=== PATIENT | female | born 1960 | race Caucasian/White ===

== ENCOUNTER 2018-02-24 16:57 | Emergency (ER) | payer OTHER, MEDICAID, SELFPAY ==
[2018-02-24 17:20] VITALS: BP 146/109; PULSE 107; RESP 16; TEMP 36.3; O2SAT 99; BMI 24.5
--- NOTE | 2018-02-24 18:23 | DI.US.S_ITS ---
PROCEDURE: US ABDOMEN COMPLETE INDICATIONS: RIGHT UPPER QUADRANT PAIN TECHNIQUE: Real-time scanning was performed of the abdominal and retroperitoneal organs, with image documentation. COMPARISON: [facility], CT, CT ABDOMEN PELVIS W CON, 02/24/2018, 19:59. [facility], US, ABDOMEN COMPLETE, 12/13/2010, 10:39. FINDINGS: Liver: Liver is normal in size and homogeneous in echotexture. Gallbladder: No gallstones, gallbladder wall thickening, or pericholecystic fluid. Biliary ducts: Intrahepatic bile ducts are non-dilated. Extrahepatic bile duct caliber measures up to 4 mm. Normal is 6-7 mm or less in diameter, or 10 mm or less post-cholecystectomy. Pancreas: Visualized portions of the pancreas are sonographically normal. Spleen: Spleen is normal in size. There are 2 solid mass lesions visualized within the spleen, measuring 3.0 x 3.0 x 3.1 cm and 3.5 x 2.7 x 3.2 cm. No definite internal vascularity on color Doppler interrogation. These are new compared to the prior ultrasound study. Kidneys: Right kidney measures 9.7 cm long; left kidney measures 10.1 cm long. No hydronephrosis. Aorta: Visualized aorta is normal in caliber at less than 3 cm. Iliacs: Proximal common iliac arteries are normal in caliber at less than 2.5 cm. IVC: Intrahepatic inferior vena cava is patent. Miscellaneous: No free abdominal fluid. IMPRESSION: 1. 2 new solid mass lesions demonstrated within the spleen. Recommend correlation with subsequent CT. 2. No evidence of cholelithiasis or cholecystitis. Dictated by: Kirk Nava M.D. on 02/24/2018 at 21:12 Approved by: Kirk Nava M.D. on 02/24/2018 at 21:14
[2018-02-24 18:57] LABS: Add Manual Diff / Slide Review NO; Basophils Absolute Auto 100 /uL (0-100); Basophils Percent Auto 0.9 % (0-2); Eosinophils Absolute Auto 100 /uL (0-450); Eosinophils Percent Auto 2.7 % (2-4); Hematocrit 46.2 % (36-46); Hemoglobin 15.4 g/dL (12.0-16.0); Lymphocytes Absolute Auto 2300 /uL (1100-4500); Lymphocytes Percent Auto 41.2 % (25-40); Mean Corpuscular HGB Conc 33.4 % (30-36); Mean Corpuscular Hemoglobin 30.2 PG (26-34); Mean Corpuscular Volume 90.5 fL (80-100); Monocytes Absolute Auto 500 /uL (0-900); Monocytes Percent Auto 8.6 % (3-14); Neutrophils Absolute Auto 2600 /uL (1500-7000); Neutrophils Percent Auto 46.6 % (50-75); Platelet Count 271 X10^3/uL (150-400); Red Cell Distribution Width 13.5 % (11.6-14.8); White Blood Cell Count 5.5 X10^3/uL (4.5-11.0)
--- NOTE | 2018-02-24 19:05 | ED.ABDPAIN ---
HPI - Abdominal Pain General Chief Complaint: Abdominal Pain Stated Complaint: RT UPPER ABD PAIN Time Seen by Provider: 02/24/18 18:20 Source: patient Mode of arrival: ambulatory Limitations: no limitations History of Present Illness HPI narrative: Patient is a 57-year-old female here for evaluation of epigastric and right upper quadrant pain. She states that she has had some sort of symptoms for the past month however she states that they do come and go. Do appear to be associated with eating. She states that over the past couple days she has had worsening pain. Some nausea. No vomiting. Has not tried anything for this prior to arrival. No prior abdominal surgeries. Related Data Allergies Allergy/AdvReac Type Severity Reaction Status Date / Time acetaminophen [From Vicodin] Allergy Verified 02/24/18 17:20 hydrocodone [From Vicodin] Allergy Verified 02/24/18 17:20 Review of Systems Constitutional Denies fever(s) and Denies headache(s) ENT Ears, Nose, Mouth, and Throat: Denies headache(s) Cardiovascular Denies chest pain and Denies dyspnea Respiratory Denies dyspnea Gastrointestinal Gastrointestinal: Reports abdominal pain, Denies change in bowel habits, Denies change in stool character, Reports nausea and Denies vomiting Genitourinary Denies dysuria and Denies flank pain Musculoskeletal Denies back pain, Denies myalgias and Denies arthralgias Integumentary/Breasts Denies rash Neurologic Denies headache(s) Hematologic/Lymphatic Comments: Not on anticoagulation PFSH Medical History Healthy adult (Acute) Surgical History No pertinent past surgical history (Acute) Social History Smoking Status: Smoker, status unknown Exam Initial Vital Signs Initial Vital Signs: Vital Signs Temperature 97.4 F L 02/24/18 17:20 Pulse Rate 107 H 02/24/18 17:20 Respiratory Rate 16 02/24/18 17:20 Blood Pressure 146/109 H 02/24/18 17:20 Pulse Oximetry 99 02/24/18 17:20 Const General: cooperative, comfortable, well developed, well groomed and No acute distress Orientation: alert, awake and oriented x3 HENMT Head: normal to inspection and normocephalic Resp Effort & Inspection: normal respiratory effort Auscultation: clear to auscultation bilaterally Cardio Rate: tachycardic Rhythm: regular rhythm Heart Sounds: no murmurs Pulses: radial pulses present GI Inspection: non-distended Palpation: soft, No firm, No guarding and tender (Right upper quadrant) Back/Spine/Pelvis Back: No CVA tenderness Skin General: no rashes or lesions noted Neuro General: alert, awake and oriented x3 Extrem General: normal to inspection and capillary refill normal Psych Appearance: grossly normal and well kempt Course Orders Ordered: ED Orders 02/24/18 18:21 EKG-12 Lead Stat 02/24/18 18:23 US abdomen complete Stat 02/24/18 18:40 Complete Blood Count AUTO DIFF Stat Comprehensive Metabolic Panel Stat Lipase Stat 02/24/18 20:01 CT abdomen pelvis w con Stat Discontinued Medications Sodium Chloride (Normal Saline 0.9%) 1,000 mls @ 1,000 mls/hr IV BOLUS ONE Stop: 02/24/18 21:00 Last Infusion: 02/24/18 21:19 Dose: 0 mls/hr Infusion: 02/24/18 20:28 Dose: 1,000 mls/hr Infusion: 02/24/18 20:21 Dose: 0 mls/hr Admin: 02/24/18 20:10 Dose: 1,000 mls/hr Ondansetron HCl (Zofran Odt Prepack) 1 bottle MISC SEEINSTR ONE Stop: 02/24/18 21:34 Last Admin: 02/24/18 21:37 Dose: 1 bottle Vital Signs - 8 hr 02/24/18 17:20 02/24/18 20:04 02/24/18 21:00 Temperature 97.4 F L Pulse Rate 107 H 77 74 Respiratory Rate 16 18 15 Blood Pressure 146/109 H Blood Pressure [Right Arm] 136/96 H 131/89 Pulse Oximetry 99 100 99 02/24/18 21:43 Temperature Pulse Rate 69 Respiratory Rate 18 Blood Pressure 120/83 Blood Pressure [Right Arm] Pulse Oximetry 98 MDM - Abdominal Pain Lab Data Attestation: I reviewed the patient's lab results. Result diagrams: 02/24/18 18:40 02/24/18 18:40 Lab Results 02/24/18 02/24/18 02/24/18 Range/Units 18:40 18:40 Unknown WBC 5.5 (4.5-11.0) X10^3/uL RBC 5.10 (4.0-5.2) X10^6/uL Hgb 15.4 (12.0-16.0) g/dL Hct 46.2 H (36-46) % MCV 90.5 (80-100) fL MCH 30.2 (26-34) PG MCHC 33.4 (30-36) % RDW 13.5 (11.6-14.8) % Plt Count 271 (150-400) X10^3/uL Neut % (Auto) 46.6 L (50-75) % Lymph % (Auto) 41.2 H (25-40) % [place] % (Auto) 8.6 (3-14) % Eos % (Auto) 2.7 (2-4) % Baso % (Auto) 0.9 (0-2) % Neut # (Auto) 2600 (0232-0967) /uL Lymph # (Auto) 2300 (8234-1856) /uL [place] # (Auto) 500 (0-900) /uL Eos # (Auto) 100 (0-450) /uL Baso # (Auto) 100 (0-100) /uL Sodium 143 (137-145) mmol/L Potassium 4.2 (3.4-5.1) mmol/L Chloride 103 (98-107) mmol/L Carbon Dioxide 27 (22-32) mmol/L BUN 11 (7-17) mg/dL Creatinine 0.70 (0.52-1.04) mg/dL Estimated GFR > 60.0 (>60) mL/min BUN/Creatinine Ratio 15.7 (6-22) Glucose 89 (70-100) mg/dL Calcium 10.4 H (8.4-10.2) mg/dL Total Bilirubin 0.4 (0.2-1.3) mg/dL AST 29 (14-36) IU/L ALT 36 (9-52) IU/L Alkaline Phosphatase 67 (38-126) U/L Total Protein 8.3 H (6.3-8.2) g/dL Albumin 5.0 (3.5-5.0) g/dL Globulin 3.3 (1.7-4.1) g/dL Albumin/Globulin Ratio 1.5 (1.0-2.8) Lipase 2176 H (23-300) U/L Ethyl Alcohol < 10 mg/dL Point of care testing: Urine Dip Bedside Urine Glucose Negative Bedside Urine Bilirubin - Negative Bedside Urine Ketone - Negative Urine Specific [place] 1.010 Bedside Urine Occult Blood - Negative Bedside Urine pH 6.0 Bedside Urine Protein - Negative Bedside Urine Urobilinogen - Negative Bedside Urine Nitrite - Negative Bedside Urine Leukocytes - Negative Esterase Imaging Data US - abdomen: Radiologist's impression: [address] [address] Ultrasound Report Signed Patient: Lissy Cline MR#: [id number] : 1960 Acct:[id number] Age/Sex: 57 / F Date of Service: 02/24/18 Loc: ED Accession Number: [id number] Procedure: US abdomen complete Ordering Provider: Joey Mederos D.O. PROCEDURE: US ABDOMEN COMPLETE INDICATIONS: RIGHT UPPER QUADRANT PAIN TECHNIQUE: Real-time scanning was performed of the abdominal and retroperitoneal organs, with image documentation. COMPARISON: [facility], CT, CT ABDOMEN PELVIS W CON, 02/24/2018, 19:59. [facility], US, ABDOMEN COMPLETE, 12/13/2010, 10:39. FINDINGS: Liver: Liver is normal in size and homogeneous in echotexture. Gallbladder: No gallstones, gallbladder wall thickening, or pericholecystic fluid. Biliary ducts: Intrahepatic bile ducts are non-dilated. Extrahepatic bile duct caliber measures up to 4 mm. Normal is 6-7 mm or less in diameter, or 10 mm or less post-cholecystectomy. Pancreas: Visualized portions of the pancreas are sonographically normal. Spleen: Spleen is normal in size. There are 2 solid mass lesions visualized within the spleen, measuring 3.0 x 3.0 x 3.1 cm and 3.5 x 2.7 x 3.2 cm. No definite internal vascularity on color Doppler interrogation. These are new compared to the prior ultrasound study. Kidneys: Right kidney measures 9.7 cm long; left kidney measures 10.1 cm long. No hydronephrosis. Aorta: Visualized aorta is normal in caliber at less than 3 cm. Iliacs: Proximal common iliac arteries are normal in caliber at less than 2.5 cm. IVC: Intrahepatic inferior vena cava is patent. Miscellaneous: No free abdominal fluid. IMPRESSION: 1. 2 new solid mass lesions demonstrated within the spleen. Recommend correlation with subsequent CT. 2. No evidence of cholelithiasis or cholecystitis. Dictated by: Kirk Nava M.D. on 02/24/2018 at 21:12 Approved by: Kirk Nava M.D. on 02/24/[address] scan - abdomen: Radiologist's impression: PROCEDURE: CT ABDOMEN PELVIS W CON INDICATIONS: pancreatitis and mass on spleen by US TECHNIQUE: After the administration of oral and intravenous contrast, 5 mm thick sections acquired from the diaphragms to the symphysis. 5 mm thick coronal and sagittal reformats were performed. For radiation dose reduction, the following was used: automated exposure control, adjustment of mA and/or kV according to patient size. COMPARISON: [facility], US, ABDOMEN COMPLETE, 12/13/2010, 10:39. [facility], US, US ABDOMEN COMPLETE, 02/24/2018, 19:33. FINDINGS: Image quality: Excellent. ABDOMEN: Lung bases: Lung bases are clear. Heart size is normal. Solid organs: Evaluation of the liver demonstrates no focal hepatic lesions the gallbladder appears within normal limits without calcified gallstones. Biliary system is non-dilated. Pancreas enhances normally without fat stranding or fluid collections. No pancreatic duct dilatation. No adrenal nodules. The spleen is normal in overall size. There are 4 hypoattenuating lesions within the spleen including a lobulated mass anteriorly measuring up to 3.3 x 2.7 cm, a lobulated mass centrally measuring up to 2.6 x 2.5 cm, and 2 smaller lesions measuring up to 1.2 cm. These demonstrate indistinct margins. Peritoneum and bowel: The stomach demonstrates normal wall thickness. There is mild segmental wall thickening involving the 2nd portion of the duodenum. The remainder of the small bowel and colon demonstrate normal wall thickness and caliber. The appendix is normal in appearance. There is colonic diverticulosis without acute diverticulitis. No free fluid or air. Nodes and vessels: No retroperitoneal or mesenteric adenopathy. Aorta and inferior vena cava are normal in caliber. Miscellaneous: No ventral hernias. PELVIS: Genitourinary: Bladder wall thickness is normal. Miscellaneous: No inguinal hernias or adenopathy. Bones: No suspicious bony lesions. No vertebral body compression fractures. IMPRESSION: 1. No CT evidence of pancreatitis. 2. No calcified gallstones or biliary ductal dilatation. 3. Multiple hypoattenuating splenic mass lesions as described. The findings are nonspecific and the differential is broad including hemangiomas, lymphangiomas, and Littoral cell angiomas as well as malignancies such as metastatic disease or angiosarcoma. These are new compared to the prior ultrasound of 12/13/10. Consider further evaluation with PET/CT or histologic diagnosis. 4. Mild segmental wall thickening of the 2nd portion of the duodenum consistent with a nonspecific infectious or inflammatory duodenitis. Dictated by: Kirk Nava M.D. on 02/24/2018 at 21:01 Approved by: Kirk Nava M.D. on 02/24/2018 at 21:11 ECG Data Attestation: I personally reviewed and interpreted this ECG as follows: Prior ECG tracings: not available for review Interpretation: Sinus rhythm Ventricular rate is 69 Normal axis Normal QRS Normal QTC No ST T wave changes MDM Narrative Medical decision making narrative: Patient is a relatively benign abdominal exam. Does have an elevated lipase and her pain is consistent with this. She has no signs of cholecystitis or cholelithiasis on the ultrasound. Her LFTs are unremarkable. We did discuss the treatment of pancreatitis. She denies any pain medication. Was sent home with some nausea medication. We did discuss a bland liquid diet. We discussed return precautions. Ultrasound did show some concerns for masses in the spleen. This is why the CT scan was ordered. It does show masses. I did discuss these with the patient. I do not feel like there the cause of her presenting symptoms today. She does have a follow-up with her primary doctor at the beginning of next month. I informed her that she needed to discuss these with him. Patient is not toxic. I do not feel like she needs admitted to the hospital. Patient expressed understanding and agreement with plan. Discharge Plan Departure Patient Disposition: Home Clinical Impression: Pancreatitis, Abdominal pain, Lesion of spleen Discharge Date/Time: 02/24/18 21:44 Interventions: ED Discharge Assessment Last Done: 02/24/18 21:43 Instructions: Pancreatitis (Alternative Therapy), DI for Pancreatitis Activity Restrictions/Additional Instructions: Recommend that she keep your appointment already scheduled for the beginning of next month with your primary doctor. Recommend a bland diet. Return to the emergency department for any new or worsening symptoms. Make sure you talk with her primary doctor about the lesions that were seen on the spleen.
[2018-02-24 19:08] LABS: Alanine Aminotransferase 36 IU/L (9-52); Albumin Globulin Ratio 1.5 (1.0-2.8); Alkaline Phosphatase 67 U/L (38-126); Aspartate Aminotransferase 29 IU/L (14-36); BUN Creatinine Ratio 15.7 (6-22); Bilirubin Total 0.4 mg/dL (0.2-1.3); Blood Urea Nitrogen 11 mg/dL (7-17); Calcium 10.4 mg/dL (8.4-10.2); Carbon Dioxide 27 mmol/L (22-32); Chloride 103 mmol/L (98-107); Estimated Glomerular Filt Rate > 60.0 mL/min (>60); Globulin 3.3 g/dL (1.7-4.1); Glucose 89 mg/dL (70-100); HEMOLYSIS < 15 (0-50); Potassium 4.2 mmol/L (3.4-5.1); Sodium 143 mmol/L (137-145); Total Protein 8.3 g/dL (6.3-8.2)
[2018-02-24 19:19] LABS: Lipase 2176 U/L (23-300)
[2018-02-24 20:00] LABS: Ethanol (ETOH) < 10 mg/dL
--- NOTE | 2018-02-24 20:01 | DI.CT.S_ITS ---
PROCEDURE: CT ABDOMEN PELVIS W CON INDICATIONS: pancreatitis and mass on spleen by US TECHNIQUE: After the administration of oral and intravenous contrast, 5 mm thick sections acquired from the diaphragms to the symphysis. 5 mm thick coronal and sagittal reformats were performed. For radiation dose reduction, the following was used: automated exposure control, adjustment of mA and/or kV according to patient size. COMPARISON: [facility], US, ABDOMEN COMPLETE, 12/13/2010, 10:39. [facility], US, US ABDOMEN COMPLETE, 02/24/2018, 19:33. FINDINGS: Image quality: Excellent. ABDOMEN: Lung bases: Lung bases are clear. Heart size is normal. Solid organs: Evaluation of the liver demonstrates no focal hepatic lesions the gallbladder appears within normal limits without calcified gallstones. Biliary system is non-dilated. Pancreas enhances normally without fat stranding or fluid collections. No pancreatic duct dilatation. No adrenal nodules. The spleen is normal in overall size. There are 4 hypoattenuating lesions within the spleen including a lobulated mass anteriorly measuring up to 3.3 x 2.7 cm, a lobulated mass centrally measuring up to 2.6 x 2.5 cm, and 2 smaller lesions measuring up to 1.2 cm. These demonstrate indistinct margins. Peritoneum and bowel: The stomach demonstrates normal wall thickness. There is mild segmental wall thickening involving the 2nd portion of the duodenum. The remainder of the small bowel and colon demonstrate normal wall thickness and caliber. The appendix is normal in appearance. There is colonic diverticulosis without acute diverticulitis. No free fluid or air. Nodes and vessels: No retroperitoneal or mesenteric adenopathy. Aorta and inferior vena cava are normal in caliber. Miscellaneous: No ventral hernias. PELVIS: Genitourinary: Bladder wall thickness is normal. Miscellaneous: No inguinal hernias or adenopathy. Bones: No suspicious bony lesions. No vertebral body compression fractures. IMPRESSION: 1. No CT evidence of pancreatitis. 2. No calcified gallstones or biliary ductal dilatation. 3. Multiple hypoattenuating splenic mass lesions as described. The findings are nonspecific and the differential is broad including hemangiomas, lymphangiomas, and Littoral cell angiomas as well as malignancies such as metastatic disease or angiosarcoma. These are new compared to the prior ultrasound of 12/13/10. Consider further evaluation with PET/CT or histologic diagnosis. 4. Mild segmental wall thickening of the 2nd portion of the duodenum consistent with a nonspecific infectious or inflammatory duodenitis. Dictated by: Kirk Nava M.D. on 02/24/2018 at 21:01 Approved by: Kirk Nava M.D. on 02/24/2018 at 21:11
[2018-02-24 20:04] VITALS: BP 136/96; PULSE 77; RESP 18; O2SAT 100
[2018-02-24] MEDS: SODIUM CHLORIDE 0.9% 1,000 ML 1000 ML IV (20:10)
[2018-02-24 21:00] VITALS: BP 131/89; PULSE 74; RESP 15; O2SAT 99
[2018-02-24] MEDS: ONDANSETRON 4 MG ODT PREPACK 1 BOTTLE MISC (21:37)
[2018-02-24 21:43] VITALS: BP 120/83; PULSE 69; RESP 18; O2SAT 98
== END 2018-02-24 21:44 | disposition home or self-care (01) ==
PROVIDERS: Emergency Provider Emergency Medicine; Family Provider Family Medicine; PCP Family Medicine
DX: K85.90 Acute pancreatitis without necrosis or infection, unspecified (principal); D73.9 Disease of spleen, unspecified; R10.9 Unspecified abdominal pain
CPT/HCPCS: 36591; 74177; 76700; 80053; 80320; 81003; 83690; 85025; 93005; 93010; 96360; 99284; 99285; Q9967

== ENCOUNTER → 2018-04-01 07:58 | Outpatient (CLI) | payer OTHER, MEDICAID, SELFPAY ==
--- NOTE | 2018-04-01 | DI.US.S_ITS ---
PROCEDURE: US ABDOMEN LIMITED INDICATIONS: FOLLOW-UP GALLBLADDER TECHNIQUE: Real-time focused scanning was performed of the abdomen, with image documentation. COMPARISON: [facility], US, US ABDOMEN COMPLETE, 02/24/2018, 19:33. [facility], CT, CT ABDOMEN PELVIS W CON, 02/24/2018, 19:59. FINDINGS: Limited study targeted the right upper quadrant at clinician request. The gallbladder appears normal with normal gallbladder wall thickness of 1.7 mm. The common bile duct is normal in caliber at 4.6 mm. The pancreas visualized appears normal. IMPRESSION: Normal limited right upper quadrant ultrasound, source of reported continued right upper quadrant pain is not found. Dictated by: Isac Flood M.D. on 04/01/2018 at 8:47 Approved by: Isac Flood M.D. on 04/01/2018 at 8:48
== END ==
PROVIDERS: PCP Family Medicine; Visit Provider Family Medicine
DX: R10.11 Right upper quadrant pain (principal)
CPT/HCPCS: 76705

== ENCOUNTER → 2018-07-17 13:26 | Outpatient (CLI) | payer OTHER, MEDICAID, SELFPAY ==
--- NOTE | 2018-07-17 14:47 | DI.MRI.S_ITS ---
PROCEDURE: MR ABDOMEN WO/W CON INDICATIONS: Right upper quadrant pain TECHNIQUE: Coronal HASTE, axial 2D FLASH in- and [id number]; axial breath-hold T2 FSE. Dynamic axial VIBE during the administration of contrast; post-contrast coronal VIBE or 2D FLASH with fat saturation from the hepatic dome to the iliac crests. Optional diffusion weighted imaging and ADC may be performed. COMPARISON: [facility], US, US ABDOMEN LIMITED, 04/01/2018, 8:13. [facility], [place], [place] PET CT FUSION SKULL 2 THIGH, 04/08/2018, 16:01. [facility], CT, CT ABDOMEN PELVIS W CON, 02/24/2018, 19:59. FINDINGS: Image quality: Excellent. Lung bases: No basal pleural effusions. Heart size is normal. Solid organs: Liver is normal in size and enhancement. Gallbladder appears normal. Biliary system is non dilated. Pancreas is normal in morphology. Spleen is normal in size again demonstrates 3 separate splenic masses with abnormal enhancement. These masses were seen initially by CT scanning 02/24/18 and the larger mass at the upper spleen had measured 2.5 x 2.6 cm with a small mass at the posterior inferior spleen measuring 1.1 x 1.2 cm and a third mass at the anterior lower spleen measuring up to 2.7 x 3.3 cm. These masses overall appear to have enlarged to a mild degree with the larger upper mass now measuring 3. 2 x 2.9 cm and the lower mass anteriorly measuring up to 3.1 x 3.7 cm. The more posterior lower mass does not appear to have changed. A fourth mass at the superior posterior splenic border measures 1.2 cm, and on the prior CT scanning had not been this enlargement has occurred over a relatively short period of time from 02/24/18 of the current study. visible as a discrete entity except for a slight hypodensity measuring 4 mm. No adrenal nodules. Both kidneys demonstrate normal size and enhancement, without hydronephrosis. Nodes and vessels: No retroperitoneal or mesenteric adenopathy by size criteria. Aorta and inferior vena cava are normal in size. Bowel and peritoneum: Unenhanced bowel loops are normal in caliber. No free fluid. Bones and soft tissues: No ventral hernias. Bone marrow is normal in overall signal. IMPRESSION: There are a total of 4 separate enhancing splenic masses which are worrisome by appearance having enlarged in size for 3 of the 4 masses. A targeted single organ ultrasound directed to the spleen is recommended for further characterization and to establish baseline imaging for followup if followup is desired to determine rate of price changer time. The current workup has included different modalities and the effect of that on accuracy of measurement of these structures is uncertain. A single modality for followup it is preferable, if possible. Dictated by: Isac Flood M.D. on 07/17/2018 at 17:25 Approved by: Isac Flood M.D. on 07/17/2018 at 17:35
== END ==
PROVIDERS: PCP Family Medicine; Visit Provider Family Medicine
DX: R10.11 Right upper quadrant pain (principal); R16.1 Splenomegaly, not elsewhere classified
CPT/HCPCS: 74183; A9579

== ENCOUNTER → 2018-08-14 07:35 | Outpatient (CLI) | payer OTHER, MEDICAID, SELFPAY ==
--- NOTE | 2018-08-14 07:37 | DI.NM.S_ITS ---
PROCEDURE: NM HIDA WITH CCK PHARMACEUTICAL: 5.5 mCi Tc-99m mebrofenin IV; 1.1 mcg CCK IV. INDICATIONS: abdominal pain TECHNIQUE: Following intravenous administration of Tc-99m mebrofenin, sequential anterior abdominal images were obtained. To evaluate the contractile response of the gallbladder in response to Cholecystokinin (CCK), sincalide (0.02 ?g/kg) was administered by slow intravenous infusion approximately 60 minutes after the administration of the radiopharmaceutical. Sequential imaging was continued for 30 minutes after the start of CCK infusion. Gallbladder ejection fraction was calculated. COMPARISON: [facility], , MR ABDOMEN WO/W CON, 07/17/2018, 14:14. [facility], US, US ABDOMEN LIMITED, 04/01/2018, 8:13. FINDINGS: Biliary scan: There is normal tracer uptake and excretion by the liver. There is normal visualization of the intrahepatic ducts, common bile duct, and gallbladder. There is normal tracer transit into the duodenum. CCK stimulation: There is poor contractile response of the gallbladder to CCK infusion. The calculated gallbladder ejection fraction is 31%; normal values are above 35%. It has been shown that any patient abdominal pain after CCK administration is related to the rate of CCK injection, rather than to any underlying gallbladder disease (Clinical Nuclear Medicine 2012; 37: 63-70. Journal of Nuclear Medicine 2014; 55: 1-9). IMPRESSION: 1. Normal filling of gallbladder. No evidence for acute cholecystitis. 2. Poor contractile response of gallbladder to CCK stimulation. This finding may be secondary to gallbladder dyskinesia or chronic cholecystitis. Dictated by: Jelani Almonte M.D. on 08/14/2018 at 10:30 Approved by: Jelani Almonte M.D. on 08/14/2018 at 10:34
== END ==
PROVIDERS: PCP Family Medicine; Visit Provider Surgery
DX: R16.1 Splenomegaly, not elsewhere classified (principal); R10.9 Unspecified abdominal pain
CPT/HCPCS: 78227; A9537; J2805

== ENCOUNTER 2018-08-20 13:22 | Emergency (ER) | payer OTHER, MEDICAID, SELFPAY ==
[2018-08-20 13:26] VITALS: BP 132/89; PULSE 70; RESP 15; TEMP 36.5; O2SAT 100; BMI 19.8
[2018-08-20] MEDS: ONDANSETRON 4 MG/2 ML INJ IV (14:15)
[2018-08-20] MEDS: SODIUM CHLORIDE 0.9% 1,000 ML 1000 ML IV (14:15)
[2018-08-20 14:19] LABS: Add Manual Diff / Slide Review NO; Basophils Absolute Auto 0 /uL (0-100); Basophils Percent Auto 0.7 % (0-2); Eosinophils Absolute Auto 100 /uL (0-450); Eosinophils Percent Auto 2.9 % (2-4); Hematocrit 41.1 % (36-46); Hemoglobin 13.6 g/dL (12.0-16.0); Lymphocytes Absolute Auto 1900 /uL (1100-4500); Lymphocytes Percent Auto 39.6 % (25-40); Mean Corpuscular HGB Conc 33.2 % (30-36); Mean Corpuscular Hemoglobin 30.7 PG (26-34); Mean Corpuscular Volume 92.5 fL (80-100); Monocytes Absolute Auto 400 /uL (0-900); Monocytes Percent Auto 7.6 % (3-14); Neutrophils Absolute Auto 2300 /uL (1500-7000); Neutrophils Percent Auto 49.2 % (50-75); Platelet Count 219 X10^3/uL (150-400); Red Blood Cell Count 4.45 X10^6/uL (4.0-5.2); Red Cell Distribution Width 13.2 % (11.6-14.8); White Blood Cell Count 4.7 X10^3/uL (4.5-11.0)
--- NOTE | 2018-08-20 14:21 | DI.US.S_ITS ---
PROCEDURE: US ABDOMEN LIMITED INDICATIONS: RIGHT UPPER QUADRANT PAIN TECHNIQUE: Real-time focused scanning was performed of the abdomen, with image documentation. COMPARISON: [facility], CT, CT ABDOMEN PELVIS W CON, 02/24/2018, 19:59. [place], [place], [place] PET CT FUSION SKULL 2 THIGH, 04/08/2018, 16:01. [facility], MR, MR ABDOMEN WO/W CON, 07/17/2018, 14:14. [place], [place], MD HIDA WITH CCK, 08/14/2018, 8:03. [facility], US, US ABDOMEN LIMITED, 04/01/2018, 8:13. FINDINGS: Visualized liver demonstrates normal size and echotexture. No gallstones. No gallbladder wall thickening, pericholecystic fluid or sonographic Mcgovern's sign. No intrahepatic biliary dilation. Common bile duct measures 2.9 mm. The visualized pancreas is normal. IMPRESSION: Normal limited right upper quadrant ultrasound exam. Dictated by: Jelani Almonte M.D. on 08/20/2018 at 15:23 Approved by: Jelani Almonte M.D. on 08/20/2018 at 15:29
--- NOTE | 2018-08-20 14:24 | ED.ABDPAIN ---
HPI - Abdominal Pain <NOBLE Sullivan - Last Filed: 08/20/18 17:32> General Chief Complaint: Abdominal Pain Stated Complaint: gallbladder attack Time Seen by Provider: 08/20/18 13:50 Source: patient Mode of arrival: ambulatory Limitations: no limitations History of Present Illness HPI narrative: The patient is a 57-year-old female marijuana smoker who presents with her for chief complaint of right upper quadrant pain. She states that this has been ongoing since February, when she was diagnosed with pancreatitis. She denies any fevers, but complains of nausea and malaise. She denies any vomiting. She states her pain is in the right upper quadrant, extending across her abdomen. She states that this is similar to her pancreatitis episode. She is also concerned about her gallbladder. She states that she has had extensive imaging start of this year, including a an abdominal CT, several ultrasounds an abdominal MRI in early July as well as a PET scan in March. She had a HIDA scan done at this facility on the of this month. But does not know the results. She has planned follow-up with her surgeon next week. She states that the pain in her right upper quadrant has been ongoing since February, but has been worse today. She has not taken anything at home for pain or nausea. She denies any dysuria urgency frequency. Related Data Home Medications Medication Instructions Recorded Confirmed famotidine 20 mg tablet 20 mg PO DAILY PRN 08/03/18 08/20/18 melatonin 10 mg tablet 10 mg PO BEDTIME PRN 08/03/18 08/20/18 multivitamin tablet 1 tab PO DAILY 08/03/18 08/20/18 diazepam 5 mg PO Q8H PRN 08/20/18 08/20/18 fluoxetine 20 mg PO BEDTIME 08/20/18 08/20/18 Previous Rx's Medication Instructions Recorded ondansetron 4 mg PO Q8H PRN #30 tab 08/20/18 tramadol 50 mg PO TID PRN #10 tab 08/20/18 Allergies Allergy/AdvReac Type Severity Reaction Status Date / Time acetaminophen [From Vicodin] Allergy Verified 08/20/18 13:26 hydrocodone [From Vicodin] Allergy Verified 08/20/18 13:26 Review of Systems <NOBLE Sullivan - Last Filed: 08/20/18 17:32> Review of Systems GENERAL: Denies chills, fatigue, malaise, fever, sweats. HEENT: Denies sinus pain, ear pain, sore throat, difficulty swallowing, dizziness. RESPIRATORY: Denies dyspnea, cough, wheezing, hemoptysis, sputum. CARDIOVASCULAR: Denies chest pain, palpitations, orthopnea, edema, GASTROINTESTINAL: See HPI : Denies dysuria, frequency, incontinence, hematuria, urinary retention. MUSCULOSKELETAL: denies weakness, joint pain, or bony pain SKIN: Denies rash, skin lesions, or other NEUROLOGIC: Denies weakness, headache, numbness, change in speech, confusion, seizures, incoordination. PSYCHIATRIC: No concerning psychosocial issues. 12 point review of systems is negative except for those stated above PFSH <NOBLE Sullivan - Last Filed: 08/20/18 17:32> Medical History (Updated 08/20/18 @ 17:14 by NOBLE Sullivan) Healthy adult (Acute) History of pancreatitis (Acute) Surgical History No pertinent past surgical history (Acute) Social History marital status: number of children: 3 household members: spouse Smoking Status: Smoker, status unknown alcohol intake: never substance use type: marijuana Social History marital status: number of children: 3 household members: spouse Smoking Status: Smoker, status unknown alcohol intake: never substance use type: marijuana Exam <NOBLE Sullivan - Last Filed: 08/20/18 17:32> Narrative Exam Narrative: GENERAL: Thin female no acute distress HEAD: Atraumatic. Normocephalic. No temporal or scalp tenderness. EYES: Pupils equal round and reactive. Extraocular motions intact. No scleral icterus. No injection or drainage. ENT: Nose without bleeding, purulent drainage or septal hematoma. Throat without erythema, tonsillar hypertrophy or exudate. Uvula midline. Airway patent. NECK: Trachea midline. No JVD or lymphadenopathy. Supple, nontender, no meningeal signs. CARDIOVASCULAR: Regular rate and rhythm RESPIRATORY: Clear to auscultation. Breath sounds equal bilaterally. No wheezes, rales, or rhonchi. No cough. No increased respiratory effort. No accessory muscle use. GASTROINTESTINAL: Abdomen soft, nondistended. No hepato-splenomegaly, or palpable masses. No guarding. Diffuse tenderness to right upper quadrant palpation. EXTREMITIES: No clubbing, cyanosis, or edema. No joint tenderness, effusion, or edema noted. BACK: Nontender without deformity or crepitance. No flank tenderness. NEURO: AOx3. SKIN: No rash or erythema. Initial Vital Signs Initial Vital Signs: Vital Signs Temperature 97.7 F 08/20/18 13:26 Pulse Rate 70 08/20/18 13:26 Respiratory Rate 15 08/20/18 13:26 Blood Pressure 132/89 08/20/18 13:26 Pulse Oximetry 100 08/20/18 13:26 <Adalgisa Arroyo MD - Last Filed: 08/20/18 19:58> Initial Vital Signs Initial Vital Signs: Vital Signs Temperature 97.7 F 08/20/18 13:26 Pulse Rate 70 08/20/18 13:26 Respiratory Rate 15 08/20/18 13:26 Blood Pressure 132/89 08/20/18 13:26 Pulse Oximetry 100 08/20/18 13:26 Course <NOBLE Sullivan - Last Filed: 08/20/18 17:32> Orders Ordered: ED Orders 08/20/18 14:05 Amylase Stat Complete Blood Count AUTO DIFF Stat Comprehensive Metabolic Panel Stat Lipase Stat Troponin & CK Cardiac Panel Stat 08/20/18 14:21 US abdomen limited Stat 08/20/18 14:30 Lactate (Lactic Acid) Stat Partial Thromboplastin Time Stat Prothrombin Time INR Stat 08/20/18 14:31 EKG-12 Lead Stat 08/20/18 16:30 Urine Microscopic Stat Discontinued Medications Sodium Chloride (Normal Saline 0.9%) 1,000 mls @ 1,000 mls/hr IV BOLUS ONE Stop: 08/20/18 14:57 Last Infusion: 08/20/18 15:21 Dose: 0 mls/hr Admin: 08/20/18 14:15 Dose: 1,000 mls/hr Ondansetron HCl (Zofran) 4 mg IV NOW ONE Stop: 08/20/18 13:59 Last Admin: 08/20/18 14:15 Dose: 4 mg Vital Signs - 8 hr 08/20/18 13:26 08/20/18 17:00 08/20/18 17:23 Temperature 97.7 F Pulse Rate 70 67 64 Respiratory Rate 15 18 20 Blood Pressure 132/89 140/87 Blood Pressure [Right Arm] 138/86 Pulse Oximetry 100 100 99 <Adalgisa Arroyo MD - Last Filed: 08/20/18 19:58> Orders Ordered: ED Orders 08/20/18 14:05 Amylase Stat Complete Blood Count AUTO DIFF Stat Comprehensive Metabolic Panel Stat Lipase Stat Troponin & CK Cardiac Panel Stat 08/20/18 14:21 US abdomen limited Stat 08/20/18 14:30 Lactate (Lactic Acid) Stat Partial Thromboplastin Time Stat Prothrombin Time INR Stat 08/20/18 14:31 EKG-12 Lead Stat 08/20/18 16:30 Urine Microscopic Stat Discontinued Medications Sodium Chloride (Normal Saline 0.9%) 1,000 mls @ 1,000 mls/hr IV BOLUS ONE Stop: 08/20/18 14:57 Last Infusion: 08/20/18 15:21 Dose: 0 mls/hr Admin: 08/20/18 14:15 Dose: 1,000 mls/hr Ondansetron HCl (Zofran) 4 mg IV NOW ONE Stop: 08/20/18 13:59 Last Admin: 08/20/18 14:15 Dose: 4 mg Vital Signs - 8 hr 08/20/18 13:26 08/20/18 17:00 08/20/18 17:23 Temperature 97.7 F Pulse Rate 70 67 64 Respiratory Rate 15 18 20 Blood Pressure 132/89 140/87 Blood Pressure [Right Arm] 138/86 Pulse Oximetry 100 100 99 MDM - Abdominal Pain <NOBLE Sullivan - Last Filed: 08/20/18 17:32> Lab Data Result diagrams: 08/20/18 14:05 08/20/18 14:05 Lab Results 08/20/18 08/20/18 08/20/18 Range/Units 14:05 14:05 14:05 WBC 4.7 (4.5-11.0) X10^3/uL RBC 4.45 (4.0-5.2) X10^6/uL Hgb 13.6 (12.0-16.0) g/dL Hct 41.1 (36-46) % MCV 92.5 (80-100) fL MCH 30.7 (26-34) PG MCHC 33.2 (30-36) % RDW 13.2 (11.6-14.8) % Plt Count 219 (150-400) X10^3/uL Neut % (Auto) 49.2 L (50-75) % Lymph % (Auto) 39.6 (25-40) % Ross % (Auto) 7.6 (3-14) % Eos % (Auto) 2.9 (2-4) % Baso % (Auto) 0.7 (0-2) % Neut # (Auto) 2300 (6145-4269) /uL Lymph # (Auto) 1900 (8808-3159) /uL Ross # (Auto) 400 (0-900) /uL Eos # (Auto) 100 (0-450) /uL Baso # (Auto) 0 (0-100) /uL PT (10.1-12.7) SECONDS INR (0.9-1.3) APTT (26.4-36.2) SECONDS Sodium 141 (137-145) mmol/L Potassium 4.5 (3.4-5.1) mmol/L Chloride 105 (98-107) mmol/L Carbon Dioxide 26 (22-32) mmol/L BUN 10 (7-17) mg/dL Creatinine 0.60 (0.52-1.04) mg/dL Estimated GFR > 60.0 (>60) mL/min BUN/Creatinine Ratio 16.7 (6-22) Glucose 82 (70-100) mg/dL Lactate (0.7-2.1) mmol/L Calcium 9.7 (8.4-10.2) mg/dL Total Bilirubin 0.9 (0.2-1.3) mg/dL AST 48 H (14-36) IU/L ALT 20 (9-52) IU/L Alkaline Phosphatase 70 (38-126) U/L Total Creatine Kinase 92 (30-135) U/L CK-MB (CK-2) TNP CK-MB (CK-2) Rel Index TNP Troponin I < 0.012 (0.01-0.034) ng/mL Total Protein 7.2 (6.3-8.2) g/dL Albumin 4.5 (3.5-5.0) g/dL Globulin 2.7 (1.7-4.1) g/dL Albumin/Globulin Ratio 1.7 (1.0-2.8) Amylase (30-110) U/L Lipase 85 (23-300) U/L Urine RBC (0-5/HPF) Urine WBC (0-5/HPF) Ur Squamous Epith Cells (0-5/HPF) Urine Bacteria (None) Ur Culture Indicated? 08/20/18 08/20/18 08/20/18 Range/Units 14:05 14:30 14:30 WBC (4.5-11.0) X10^3/uL RBC (4.0-5.2) X10^6/uL Hgb (12.0-16.0) g/dL Hct (36-46) % MCV (80-100) fL MCH (26-34) PG MCHC (30-36) % RDW (11.6-14.8) % Plt Count (150-400) X10^3/uL Neut % (Auto) (50-75) % Lymph % (Auto) (25-40) % Ross % (Auto) (3-14) % Eos % (Auto) (2-4) % Baso % (Auto) (0-2) % Neut # (Auto) (4914-9851) /uL Lymph # (Auto) (1126-8725) /uL Ross # (Auto) (0-900) /uL Eos # (Auto) (0-450) /uL Baso # (Auto) (0-100) /uL PT 11.3 (10.1-12.7) SECONDS INR 1.0 (0.9-1.3) APTT 38 H (26.4-36.2) SECONDS Sodium (137-145) mmol/L Potassium (3.4-5.1) mmol/L Chloride (98-107) mmol/L Carbon Dioxide (22-32) mmol/L BUN (7-17) mg/dL Creatinine (0.52-1.04) mg/dL Estimated GFR (>60) mL/min BUN/Creatinine Ratio (6-22) Glucose (70-100) mg/dL Lactate 1.2 (0.7-2.1) mmol/L Calcium (8.4-10.2) mg/dL Total Bilirubin (0.2-1.3) mg/dL AST (14-36) IU/L ALT (9-52) IU/L Alkaline Phosphatase (38-126) U/L Total Creatine Kinase (30-135) U/L CK-MB (CK-2) CK-MB (CK-2) Rel Index Troponin I (0.01-0.034) ng/mL Total Protein (6.3-8.2) g/dL Albumin (3.5-5.0) g/dL Globulin (1.7-4.1) g/dL Albumin/Globulin Ratio (1.0-2.8) Amylase 102 (30-110) U/L Lipase (23-300) U/L Urine RBC (0-5/HPF) Urine WBC (0-5/HPF) Ur Squamous Epith Cells (0-5/HPF) Urine Bacteria (None) Ur Culture Indicated? 08/20/18 Range/Units 16:30 WBC (4.5-11.0) X10^3/uL RBC (4.0-5.2) X10^6/uL Hgb (12.0-16.0) g/dL Hct (36-46) % MCV (80-100) fL MCH (26-34) PG MCHC (30-36) % RDW (11.6-14.8) % Plt Count (150-400) X10^3/uL Neut % (Auto) (50-75) % Lymph % (Auto) (25-40) % Ross % (Auto) (3-14) % Eos % (Auto) (2-4) % Baso % (Auto) (0-2) % Neut # (Auto) (4112-6553) /uL Lymph # (Auto) (6899-7374) /uL Ross # (Auto) (0-900) /uL Eos # (Auto) (0-450) /uL Baso # (Auto) (0-100) /uL PT (10.1-12.7) SECONDS INR (0.9-1.3) APTT (26.4-36.2) SECONDS Sodium (137-145) mmol/L Potassium (3.4-5.1) mmol/L Chloride (98-107) mmol/L Carbon Dioxide (22-32) mmol/L BUN (7-17) mg/dL Creatinine (0.52-1.04) mg/dL Estimated GFR (>60) mL/min BUN/Creatinine Ratio (6-22) Glucose (70-100) mg/dL Lactate (0.7-2.1) mmol/L Calcium (8.4-10.2) mg/dL Total Bilirubin (0.2-1.3) mg/dL AST (14-36) IU/L ALT (9-52) IU/L Alkaline Phosphatase (38-126) U/L Total Creatine Kinase (30-135) U/L CK-MB (CK-2) CK-MB (CK-2) Rel Index Troponin I (0.01-0.034) ng/mL Total Protein (6.3-8.2) g/dL Albumin (3.5-5.0) g/dL Globulin (1.7-4.1) g/dL Albumin/Globulin Ratio (1.0-2.8) Amylase (30-110) U/L Lipase (23-300) U/L Urine RBC 0-1/hpf (0-5/HPF) Urine WBC 0-1/hpf (0-5/HPF) Ur Squamous Epith Cells 0-1 /hpf (0-5/HPF) Urine Bacteria None seen (None) Ur Culture Indicated? Cult not indicated Point of care testing: Urine Dip Bedside Urine Glucose Negative Bedside Urine Bilirubin - Negative Bedside Urine Ketone ++ 40 Urine Specific Cameron 1.015 Bedside Urine Occult Blood - Negative Bedside Urine pH 6.5 Bedside Urine Protein - Negative Bedside Urine Urobilinogen - Negative Bedside Urine Nitrite - Negative Bedside Urine Leukocytes +/- 15 Esterase Imaging Data US - abdomen: Radiologist's impression: [address] [address] Ultrasound Report Signed Patient: Lissy Cline R#: [id number] : [id number]:[id number] Age/Sex: 57 / FDate of Service: 08/20/18 Loc: ED Accession Number: [id number] Procedure: US abdomen limited Ordering Provider: Dee Peterson- PROCEDURE: US ABDOMEN LIMITED INDICATIONS: RIGHT UPPER QUADRANT PAIN TECHNIQUE: Real-time focused scanning was performed of the abdomen, with image documentation. COMPARISON: [facility], CT, CT ABDOMEN PELVIS W CON, 02/24/2018, 19:59. [place], [place] CT FUSION SKULL 2 THIGH, 04/08/2018, 16:01. [facility], MR, MR ABDOMEN WO/W CON, 07/17/2018, 14:14. [place], [place] HIDA WITH CCK, 08/14/2018, 8:03. [facility], US, US ABDOMEN LIMITED, 04/01/2018, 8:13. FINDINGS: Visualized liver demonstrates normal size and echotexture. No gallstones. No gallbladder wall thickening, pericholecystic fluid or sonographic Mcgovern's sign. No intrahepatic biliary dilation. Common bile duct measures 2.9 mm. The visualized pancreas is normal. IMPRESSION: Normal limited right upper quadrant ultrasound exam. Dictated by: Jelani Almonte M.D. on 08/20/2018 at 15:23 Approved by: Jelani Almonte M.D. on 08/20/2018 at 15:29 ECG Data Interpretation: Ventricular rate 56. Sinus bradycardia. No ST elevation depression noted. No ectopy noted. Viewed by Dr. Arroyo MDM Narrative Medical decision making narrative: The patient is a 57-year-old female who presents with a chief complaint of right upper quadrant pain. She does not have an acute abdomen on exam, does not have an elevated white blood cell count, has no UTI and has normal ultrasound. The patient declined any further imaging today. I discussed at length follow up with primary care provider as well as with her surgeon as scheduled. I encouraged pushing fluids, rest. I did give her a small prescription of tramadol and nausea medication. Discussed coming back to the ER for any acute concerns such as even to keep down fluids, abdominal pain with fever etc. Patient has no questions or concerns upon discharge and states agreement of not doing any further imaging today and declines any further imaging today. She states she will come back if needed. <Adalgisa Arroyo MD - Last Filed: 08/20/18 19:58> Lab Data Lab Results 08/20/18 08/20/18 08/20/18 Range/Units 14:05 14:05 14:05 WBC 4.7 (4.5-11.0) X10^3/uL RBC 4.45 (4.0-5.2) X10^6/uL Hgb 13.6 (12.0-16.0) g/dL Hct 41.1 (36-46) % MCV 92.5 (80-100) fL MCH 30.7 (26-34) PG MCHC 33.2 (30-36) % RDW 13.2 (11.6-14.8) % Plt Count 219 (150-400) X10^3/uL Neut % (Auto) 49.2 L (50-75) % Lymph % (Auto) 39.6 (25-40) % Ross % (Auto) 7.6 (3-14) % Eos % (Auto) 2.9 (2-4) % Baso % (Auto) 0.7 (0-2) % Neut # (Auto) 2300 (6952-5499) /uL Lymph # (Auto) 1900 (3205-5311) /uL Ross # (Auto) 400 (0-900) /uL Eos # (Auto) 100 (0-450) /uL Baso # (Auto) 0 (0-100) /uL PT (10.1-12.7) SECONDS INR (0.9-1.3) APTT (26.4-36.2) SECONDS Sodium 141 (137-145) mmol/L Potassium 4.5 (3.4-5.1) mmol/L Chloride 105 (98-107) mmol/L Carbon Dioxide 26 (22-32) mmol/L BUN 10 (7-17) mg/dL Creatinine 0.60 (0.52-1.04) mg/dL Estimated GFR > 60.0 (>60) mL/min BUN/Creatinine Ratio 16.7 (6-22) Glucose 82 (70-100) mg/dL Lactate (0.7-2.1) mmol/L Calcium 9.7 (8.4-10.2) mg/dL Total Bilirubin 0.9 (0.2-1.3) mg/dL AST 48 H (14-36) IU/L ALT 20 (9-52) IU/L Alkaline Phosphatase 70 (38-126) U/L Total Creatine Kinase 92 (30-135) U/L CK-MB (CK-2) TNP CK-MB (CK-2) Rel Index TNP Troponin I < 0.012 (0.01-0.034) ng/mL Total Protein 7.2 (6.3-8.2) g/dL Albumin 4.5 (3.5-5.0) g/dL Globulin 2.7 (1.7-4.1) g/dL Albumin/Globulin Ratio 1.7 (1.0-2.8) Amylase (30-110) U/L Lipase 85 (23-300) U/L Urine RBC (0-5/HPF) Urine WBC (0-5/HPF) Ur Squamous Epith Cells (0-5/HPF) Urine Bacteria (None) Ur Culture Indicated? 08/20/18 08/20/18 08/20/18 Range/Units 14:05 14:30 14:30 WBC (4.5-11.0) X10^3/uL RBC (4.0-5.2) X10^6/uL Hgb (12.0-16.0) g/dL Hct (36-46) % MCV (80-100) fL MCH (26-34) PG MCHC (30-36) % RDW (11.6-14.8) % Plt Count (150-400) X10^3/uL Neut % (Auto) (50-75) % Lymph % (Auto) (25-40) % Ross % (Auto) (3-14) % Eos % (Auto) (2-4) % Baso % (Auto) (0-2) % Neut # (Auto) (0719-8913) /uL Lymph # (Auto) (1166-7939) /uL Ross # (Auto) (0-900) /uL Eos # (Auto) (0-450) /uL Baso # (Auto) (0-100) /uL PT 11.3 (10.1-12.7) SECONDS INR 1.0 (0.9-1.3) APTT 38 H (26.4-36.2) SECONDS Sodium (137-145) mmol/L Potassium (3.4-5.1) mmol/L Chloride (98-107) mmol/L Carbon Dioxide (22-32) mmol/L BUN (7-17) mg/dL Creatinine (0.52-1.04) mg/dL Estimated GFR (>60) mL/min BUN/Creatinine Ratio (6-22) Glucose (70-100) mg/dL Lactate 1.2 (0.7-2.1) mmol/L Calcium (8.4-10.2) mg/dL Total Bilirubin (0.2-1.3) mg/dL AST (14-36) IU/L ALT (9-52) IU/L Alkaline Phosphatase (38-126) U/L Total Creatine Kinase (30-135) U/L CK-MB (CK-2) CK-MB (CK-2) Rel Index Troponin I (0.01-0.034) ng/mL Total Protein (6.3-8.2) g/dL Albumin (3.5-5.0) g/dL Globulin (1.7-4.1) g/dL Albumin/Globulin Ratio (1.0-2.8) Amylase 102 (30-110) U/L Lipase (23-300) U/L Urine RBC (0-5/HPF) Urine WBC (0-5/HPF) Ur Squamous Epith Cells (0-5/HPF) Urine Bacteria (None) Ur Culture Indicated? 08/20/18 Range/Units 16:30 WBC (4.5-11.0) X10^3/uL RBC (4.0-5.2) X10^6/uL Hgb (12.0-16.0) g/dL Hct (36-46) % MCV (80-100) fL MCH (26-34) PG MCHC (30-36) % RDW (11.6-14.8) % Plt Count (150-400) X10^3/uL Neut % (Auto) (50-75) % Lymph % (Auto) (25-40) % Ross % (Auto) (3-14) % Eos % (Auto) (2-4) % Baso % (Auto) (0-2) % Neut # (Auto) (6414-8300) /uL Lymph # (Auto) (8093-5248) /uL Ross # (Auto) (0-900) /uL Eos # (Auto) (0-450) /uL Baso # (Auto) (0-100) /uL PT (10.1-12.7) SECONDS INR (0.9-1.3) APTT (26.4-36.2) SECONDS Sodium (137-145) mmol/L Potassium (3.4-5.1) mmol/L Chloride (98-107) mmol/L Carbon Dioxide (22-32) mmol/L BUN (7-17) mg/dL Creatinine (0.52-1.04) mg/dL Estimated GFR (>60) mL/min BUN/Creatinine Ratio (6-22) Glucose (70-100) mg/dL Lactate (0.7-2.1) mmol/L Calcium (8.4-10.2) mg/dL Total Bilirubin (0.2-1.3) mg/dL AST (14-36) IU/L ALT (9-52) IU/L Alkaline Phosphatase (38-126) U/L Total Creatine Kinase (30-135) U/L CK-MB (CK-2) CK-MB (CK-2) Rel Index Troponin I (0.01-0.034) ng/mL Total Protein (6.3-8.2) g/dL Albumin (3.5-5.0) g/dL Globulin (1.7-4.1) g/dL Albumin/Globulin Ratio (1.0-2.8) Amylase (30-110) U/L Lipase (23-300) U/L Urine RBC 0-1/hpf (0-5/HPF) Urine WBC 0-1/hpf (0-5/HPF) Ur Squamous Epith Cells 0-1 /hpf (0-5/HPF) Urine Bacteria None seen (None) Ur Culture Indicated? Cult not indicated Point of care testing: Urine Dip Bedside Urine Glucose Negative Bedside Urine Bilirubin - Negative Bedside Urine Ketone ++ 40 Urine Specific Cameron 1.015 Bedside Urine Occult Blood - Negative Bedside Urine pH 6.5 Bedside Urine Protein - Negative Bedside Urine Urobilinogen - Negative Bedside Urine Nitrite - Negative Bedside Urine Leukocytes +/- 15 Esterase Discharge Plan Departure Patient Disposition: Home Clinical Impression: Abdominal pain Qualifiers: Abdominal location: right lower quadrant Qualified Code(s): R10.31 - Right lower quadrant pain Discharge Date/Time: 08/20/18 17:24 Interventions: ED Discharge Assessment Last Done: 08/20/18 17:23 Instructions: DI for Abdominal Pain-Adult Activity Restrictions/Additional Instructions: Your lab work came back well today. Your ultrasound has no acute etiology. I have given you some pain and nausea medication. Please follow up with primary care provider as well as her surgeon. Please come back to the emergency department for any acute concerns such as abdominal pain with fever, inability keep down fluids etc. Please be aware that tramadol can be sedating and constipating. There can be a related allergy between hydrocodone and tramadol, so please be careful taking it and monitor for any allergy. Come back to the ER for any acute concerns. Prescriptions: New tramadol 50 mg tablet 50 mg PO TID PRN (Reason: pain) Qty: 10 RF: 0 ondansetron 4 mg tablet,disintegrating 4 mg PO Q8H PRN (Reason: nausea and vomiting) Qty: 30 RF: 0 No Action multivitamin tablet 1 tab PO DAILY RF: 0 famotidine [Pepcid] 20 mg tablet 20 mg PO DAILY PRN (Reason: Acid Reflux) RF: 0 melatonin 10 mg tablet 10 mg PO BEDTIME PRN (Reason: Insomnia) RF: 0 fluoxetine 10 mg capsule 20 mg PO BEDTIME RF: 0 diazepam 5 mg tablet 5 mg PO Q8H PRN (Reason: anxiety or muscle relaxation) RF: 0 Referrals: Nam Portillo MD [Primary Care Provider] -
--- NOTE | 2018-08-20 14:27 | ED_ITS ---
HPI - Abdominal Pain <NOBLE Sullivan - Last Filed: 08/20/18 17:32> General Chief Complaint: Abdominal Pain Stated Complaint: gallbladder attack Time Seen by Provider: 08/20/18 13:50 Source: patient Mode of arrival: ambulatory Limitations: no limitations History of Present Illness HPI narrative: The patient is a 57-year-old female marijuana smoker who presents with her for chief complaint of right upper quadrant pain. She states that this has been ongoing since February, when she was diagnosed with pancreatitis. She denies any fevers, but complains of nausea and malaise. She denies any vomiting. She states her pain is in the right upper quadrant, extending across her abdomen. She states that this is similar to her pancreatitis episode. She is also concerned about her gallbladder. She states that she has had extensive imaging start of this year, including a an abdominal CT, several ultrasounds an abdominal MRI in early July as well as a PET scan in March. She had a HIDA scan done at this facility on the of this month. But does not know the results. She has planned follow-up with her surgeon next week. She states that the pain in her right upper quadrant has been ongoing since February, but has been worse today. She has not taken anything at home for pain or nausea. She denies any dysuria urgency frequency. Related Data Home Medications Medication Instructions Recorded Confirmed famotidine 20 mg tablet 20 mg PO DAILY PRN 08/03/18 08/20/18 melatonin 10 mg tablet 10 mg PO BEDTIME PRN 08/03/18 08/20/18 multivitamin tablet 1 tab PO DAILY 08/03/18 08/20/18 diazepam 5 mg PO Q8H PRN 08/20/18 08/20/18 fluoxetine 20 mg PO BEDTIME 08/20/18 08/20/18 Previous Rx's Medication Instructions Recorded ondansetron 4 mg PO Q8H PRN #30 tab 08/20/18 tramadol 50 mg PO TID PRN #10 tab 08/20/18 Allergies Allergy/AdvReac Type Severity Reaction Status Date / Time acetaminophen [From Vicodin] Allergy Verified 08/20/18 13:26 hydrocodone [From Vicodin] Allergy Verified 08/20/18 13:26 Review of Systems <NOBLE Sullivan - Last Filed: 08/20/18 17:32> Review of Systems GENERAL: Denies chills, fatigue, malaise, fever, sweats. HEENT: Denies sinus pain, ear pain, sore throat, difficulty swallowing, dizz iness. RESPIRATORY: Denies dyspnea, cough, wheezing, hemoptysis, sputum. CARDIOVASCULAR: Denies chest pain, palpitations, orthopnea, edema, GASTROINTESTINAL: See HPI : Denies dysuria, frequency, incontinence, hematuria, urinary retention. MUSCULOSKELETAL: denies weakness, joint pain, or bony pain SKIN: Denies rash, skin lesions, or other NEUROLOGIC: Denies weakness, headache, numbness, change in speech, confusion, seizures, incoordination. PSYCHIATRIC: No concerning psychosocial issues. 12 point review of systems is negative except for those stated above PFSH <NOBLE Sullivan - Last Filed: 08/20/18 17:32> Medical History (Updated 08/20/18 @ 17:14 by NOBLE Sullivan) Healthy adult (Acute) History of pancreatitis (Acute) Surgical History No pertinent past surgical history (Acute) Social History marital status: number of children: 3 household members: spouse Smoking Status: Smoker, status unknown alcohol intake: never substance use type: marijuana Social History marital status: number of children: 3 household members: spouse Smoking Status: Smoker, status unknown alcohol intake: never substance use type: marijuana Exam <NOBLE Sullivan - Last Filed: 08/20/18 17:32> Narrative Exam Narrative: GENERAL: Thin female no acute distress HEAD: Atraumatic. Normocephalic. No temporal or scalp tenderness. EYES: Pupils equal round and reactive. Extraocular motions intact. No scleral icterus. No injection or drainage. ENT: Nose without bleeding, purulent drainage or septal hematoma. Throat without erythema, tonsillar hypertrophy or exudate. Uvula midline. Airway patent. NECK: Trachea midline. No JVD or lymphadenopathy. Supple, nontender, no meningeal signs. CARDIOVASCULAR: Regular rate and rhythm RESPIRATORY: Clear to auscultation. Breath sounds equal bilaterally. No wheezes, rales, or rhonchi. No cough. No increased respiratory effort. No accessory muscle use. GASTROINTESTINAL: Abdomen soft, nondistended. No hepato-splenomegaly, or palpable masses. No guarding. Diffuse tenderness to right upper quadrant palpa tion. EXTREMITIES: No clubbing, cyanosis, or edema. No joint tenderness, effusion, or edema noted. BACK: Nontender without deformity or crepitance. No flank tenderness. NEURO: AOx3. SKIN: No rash or erythema. Initial Vital Signs Initial Vital Signs: Vital Signs Temperature 97.7 F 08/20/18 13:26 Pulse Rate 70 08/20/18 13:26 Respiratory Rate 15 08/20/18 13:26 Blood Pressure 132/89 08/20/18 13:26 Pulse Oximetry 100 08/20/18 13:26 <Adalgisa Arroyo MD - Last Filed: 08/20/18 19:58> Initial Vital Signs Initial Vital Signs: Vital Signs Temperature 97.7 F 08/20/18 13:26 Pulse Rate 70 08/20/18 13:26 Respiratory Rate 15 08/20/18 13:26 Blood Pressure 132/89 08/20/18 13:26 Pulse Oximetry 100 08/20/18 13:26 Course <NOBLE Sullivan - Last Filed: 08/20/18 17:32> Orders Ordered: ED Orders 08/20/18 14:05 Amylase Stat Complete Blood Count AUTO DIFF Stat Comprehensive Metabolic Panel Stat Lipase Stat Troponin & CK Cardiac Panel Stat 08/20/18 14:21 US abdomen limited Stat 08/20/18 14:30 Lactate (Lactic Acid) Stat Partial Thromboplastin Time Stat Prothrombin Time INR Stat 08/20/18 14:31 EKG-12 Lead Stat 08/20/18 16:30 Urine Microscopic Stat Discontinued Medications Sodium Chloride (Normal Saline 0.9%) 1,000 mls @ 1,000 mls/hr IV BOLUS ONE Stop: 08/20/18 14:57 Last Infusion: 08/20/18 15:21 Dose: 0 mls/hr Admin: 08/20/18 14:15 Dose: 1,000 mls/hr Ondansetron HCl (Zofran) 4 mg IV NOW ONE Stop: 08/20/18 13:59 Last Admin: 08/20/18 14:15 Dose: 4 mg Vital Signs - 8 hr 08/20/18 13:26 08/20/18 17:00 08/20/18 17:23 Temperature 97.7 F Pulse Rate 70 67 64 Respiratory Rate 15 18 20 Blood Pressure 132/89 140/87 Blood Pressure [Right Arm] 138/86 Pulse Oximetry 100 100 99 <Adalgisa Arroyo MD - Last Filed: 08/20/18 19:58> Orders Ordered: ED Orders 08/20/18 14:05 Amylase Stat Complete Blood Count AUTO DIFF Stat Comprehensive Metabolic Panel Stat Lipase Stat Troponin & CK Cardiac Panel Stat 08/20/18 14:21 US abdomen limited Stat 08/20/18 14:30 Lactate (Lactic Acid) Stat Partial Thromboplastin Time Stat Prothrombin Time INR Stat 08/20/18 14:31 EKG-12 Lead Stat 08/20/18 16:30 Urine Microscopic Stat Discontinued Medications Sodium Chloride (Normal Saline 0.9%) 1,000 mls @ 1,000 mls/hr IV BOLUS ONE Stop: 08/20/18 14:57 Last Infusion: 08/20/18 15:21 Dose: 0 mls/hr Admin: 08/20/18 14:15 Dose: 1,000 mls/hr Ondansetron HCl (Zofran) 4 mg IV NOW ONE Stop: 08/20/18 13:59 Last Admin: 08/20/18 14:15 Dose: 4 mg Vital Signs - 8 hr 08/20/18 13:26 08/20/18 17:00 08/20/18 17:23 Temperature 97.7 F Pulse Rate 70 67 64 Respiratory Rate 15 18 20 Blood Pressure 132/89 140/87 Blood Pressure [Right Arm] 138/86 Pulse Oximetry 100 100 99 MDM - Abdominal Pain <NOBLE Sullivan - Last Filed: 08/20/18 17:32> Lab Data Result diagrams: 08/20/18 14:05 08/20/18 14:05 Lab Results 08/20/18 08/20/18 08/20/18 Range/Units 14:05 14:05 14:05 WBC 4.7 (4.5-11.0) X10^3/uL RBC 4.45 (4.0-5.2) X10^6/uL Hgb 13.6 (12.0-16.0) g/dL Hct 41.1 (36-46) % MCV 92.5 (80-100) fL MCH 30.7 (26-34) PG MCHC 33.2 (30-36) % RDW 13.2 (11.6-14.8) % Plt Count 219 (150-400) X10^3/uL Neut % (Auto) 49.2 L (50-75) % Lymph % (Auto) 39.6 (25-40) % Izard % (Auto) 7.6 (3-14) % Eos % (Auto) 2.9 (2-4) % Baso % (Auto) 0.7 (0-2) % Neut # (Auto) 2300 (6347-6035) /uL Lymph # (Auto) 1900 (1392-8290) /uL Izard # (Auto) 400 (0-900) /uL Eos # (Auto) 100 (0-450) /uL Baso # (Auto) 0 (0-100) /uL PT (10.1-12.7) SECONDS INR (0.9-1.3) APTT (26.4-36.2) SECONDS Sodium 141 (137-145) mmol/L Potassium 4.5 (3.4-5.1) mmol/L Chloride 105 (98-107) mmol/L Carbon Dioxide 26 (22-32) mmol/L BUN 10 (7-17) mg/dL Creatinine 0.60 (0.52-1.04) mg/dL Estimated GFR > 60.0 (>60) mL/min BUN/Creatinine Ratio 16.7 (6-22) Glucose 82 (70-100) mg/dL Lactate (0.7-2.1) mmol/L Calcium 9.7 (8.4-10.2) mg/dL Total Bilirubin 0.9 (0.2-1.3) mg/dL AST 48 H (14-36) IU/L ALT 20 (9-52) IU/L Alkaline Phosphatase 70 (38-126) U/L Total Creatine Kinase 92 (30-135) U/L CK-MB (CK-2) TNP CK-MB (CK-2) Rel Index TNP Troponin I < 0.012 (0.01-0.034) ng/mL Total Protein 7.2 (6.3-8.2) g/dL Albumin 4.5 (3.5-5.0) g/dL Globulin 2.7 (1.7-4.1) g/dL Albumin/Globulin Ratio 1.7 (1.0-2.8) Amylase (30-110) U/L Lipase 85 (23-300) U/L Urine RBC (0-5/HPF) Urine WBC (0-5/HPF) Ur Squamous Epith Cells (0-5/HPF) Urine Bacteria (None) Ur Culture Indicated? 08/20/18 08/20/18 08/20/18 Range/Units 14:05 14:30 14:30 WBC (4.5-11.0) X10^3/uL RBC (4.0-5.2) X10^6/uL Hgb (12.0-16.0) g/dL Hct (36-46) % MCV (80-100) fL MCH (26-34) PG MCHC (30-36) % RDW (11.6-14.8) % Plt Count (150-400) X10^3/uL Neut % (Auto) (50-75) % Lymph % (Auto) (25-40) % Izard % (Auto) (3-14) % Eos % (Auto) (2-4) % Baso % (Auto) (0-2) % Neut # (Auto) (8373-4406) /uL Lymph # (Auto) (1043-8004) /uL Izard # (Auto) (0-900) /uL Eos # (Auto) (0-450) /uL Baso # (Auto) (0-100) /uL PT 11.3 (10.1-12.7) SECONDS INR 1.0 (0.9-1.3) APTT 38 H (26.4-36.2) SECONDS Sodium (137-145) mmol/L Potassium (3.4-5.1) mmol/L Chloride (98-107) mmol/L Carbon Dioxide (22-32) mmol/L BUN (7-17) mg/dL Creatinine (0.52-1.04) mg/dL Estimated GFR (>60) mL/min BUN/Creatinine Ratio (6-22) Glucose (70-100) mg/dL Lactate 1.2 (0.7-2.1) mmol/L Calcium (8.4-10.2) mg/dL Total Bilirubin (0.2-1.3) mg/dL AST (14-36) IU/L ALT (9-52) IU/L Alkaline Phosphatase (38-126) U/L Total Creatine Kinase (30-135) U/L CK-MB (CK-2) CK-MB (CK-2) Rel Index Troponin I (0.01-0.034) ng/mL Total Protein (6.3-8.2) g/dL Albumin (3.5-5.0) g/dL Globulin (1.7-4.1) g/dL Albumin/Globulin Ratio (1.0-2.8) Amylase 102 (30-110) U/L Lipase (23-300) U/L Urine RBC (0-5/HPF) Urine WBC (0-5/HPF) Ur Squamous Epith Cells (0-5/HPF) Urine Bacteria (None) Ur Culture Indicated? 08/20/18 Range/Units 16:30 WBC (4.5-11.0) X10^3/uL RBC (4.0-5.2) X10^6/uL Hgb (12.0-16.0) g/dL Hct (36-46) % MCV (80-100) fL MCH (26-34) PG MCHC (30-36) % RDW (11.6-14.8) % Plt Count (150-400) X10^3/uL Neut % (Auto) (50-75) % Lymph % (Auto) (25-40) % Izard % (Auto) (3-14) % Eos % (Auto) (2-4) % Baso % (Auto) (0-2) % Neut # (Auto) (5799-3867) /uL Lymph # (Auto) (9091-7275) /uL Izard # (Auto) (0-900) /uL Eos # (Auto) (0-450) /uL Baso # (Auto) (0-100) /uL PT (10.1-12.7) SECONDS INR (0.9-1.3) APTT (26.4-36.2) SECONDS Sodium (137-145) mmol/L Potassium (3.4-5.1) mmol/L Chloride (98-107) mmol/L Carbon Dioxide (22-32) mmol/L BUN (7-17) mg/dL Creatinine (0.52-1.04) mg/dL Estimated GFR (>60) mL/min BUN/Creatinine Ratio (6-22) Glucose (70-100) mg/dL Lactate (0.7-2.1) mmol/L Calcium (8.4-10.2) mg/dL Total Bilirubin (0.2-1.3) mg/dL AST (14-36) IU/L ALT (9-52) IU/L Alkaline Phosphatase (38-126) U/L Total Creatine Kinase (30-135) U/L CK-MB (CK-2) CK-MB (CK-2) Rel Index Troponin I (0.01-0.034) ng/mL Total Protein (6.3-8.2) g/dL Albumin (3.5-5.0) g/dL Globulin (1.7-4.1) g/dL Albumin/Globulin Ratio (1.0-2.8) Amylase (30-110) U/L Lipase (23-300) U/L Urine RBC 0-1/hpf (0-5/HPF) Urine WBC 0-1/hpf (0-5/HPF) Ur Squamous Epith Cells 0-1 /hpf (0-5/HPF) Urine Bacteria None seen (None) Ur Culture Indicated? Cult not indicated Point of care testing: Urine Dip Bedside Urine Glucose Negative Bedside Urine Bilirubin - Negative Bedside Urine Ketone ++ 40 Urine Specific [place] 1.015 Bedside Urine Occult Blood - Negative Bedside Urine pH 6.5 Bedside Urine Protein - Negative Bedside Urine Urobilinogen - Negative Bedside Urine Nitrite - Negative Bedside Urine Leukocytes +/- 15 Esterase Imaging Data US - abdomen: Radiologist's impression: [address] [address] Ultrasound Report Signed Patient: Lissy Cline RMR#: [id number] : 1Acct:[id number] Age/Sex: 57 / FDate of Service: 08/20/18 Loc: ED Accession Number: [id number] Procedure: US abdomen limited Ordering Provider: Dee Peterson- PROCEDURE: US ABDOMEN LIMITED INDICATIONS: RIGHT UPPER QUADRANT PAIN TECHNIQUE: Real-time focused scanning was performed of the abdomen, with image documentation. COMPARISON: [facility], CT, CT ABDOMEN PELVIS W CON, 02/24/2018, 19:59. [place], [place], [place] PET CT FUSION SKULL 2 THIGH, 04/08/2018, 16:01. [facility], MR, MR ABDOMEN WO/W CON, 07/17/2018, 14:14. [place], [place], [place] HIDA WITH CCK, 08/14/2018, 8:03. [facility], US, US ABDOMEN LIMITED, 04/01/2018, 8:13. FINDINGS: Visualized liver demonstrates normal size and echotexture. No gallstones. No gallbladder wall thickening, pericholecystic fluid or sonographic Mcgovern's sign. No intrahepatic biliary dilation. Common bile duct measures 2.9 mm. The visualized pancreas is normal. IMPRESSION: Normal limited right upper quadrant ultrasound exam. Dictated by: Jelani Almonte M.D. on 08/20/2018 at 15:23 Approved by: Jelani Almonte M.D. on 08/20/2018 at 15:29 ECG Data Interpretation: Ventricular rate 56. Sinus bradycardia. No ST elevation depression noted. No ectopy noted. Viewed by Dr. Cruz NAJERA Narrative Medical decision making narrative: The patient is a 57-year-old female who presents with a chief complaint of right upper quadrant pain. She does not have an acute abdomen on exam, does not have an elevated white blood cell count, has no UTI and has normal ultrasound. The patient declined any further imaging today. I discussed at length follow up with primary care provider as well as with her surgeon as scheduled. I encouraged pushing fluids, rest. I did give her a small prescription of tramadol and nausea medication. Discussed coming back to the ER for any acute concerns such as even to keep down fluids, abdominal pain with fever etc. Patient has no questions or concerns upon discharge and states agreement of not doing any further imaging today and declines any further imaging today. She states she will come back if needed. <Adalgisa Arroyo MD - Last Filed: 08/20/18 19:58> Lab Data Lab Results 08/20/18 08/20/18 08/20/18 Range/Units 14:05 14:05 14:05 WBC 4.7 (4.5-11.0) X10^3/uL RBC 4.45 (4.0-5.2) X10^6/uL Hgb 13.6 (12.0-16.0) g/dL Hct 41.1 (36-46) % MCV 92.5 (80-100) fL MCH 30.7 (26-34) PG MCHC 33.2 (30-36) % RDW 13.2 (11.6-14.8) % Plt Count 219 (150-400) X10^3/uL Neut % (Auto) 49.2 L (50-75) % Lymph % (Auto) 39.6 (25-40) % Izard % (Auto) 7.6 (3-14) % Eos % (Auto) 2.9 (2-4) % Baso % (Auto) 0.7 (0-2) % Neut # (Auto) 2300 (2549-8573) /uL Lymph # (Auto) 1900 (2473-0787) /uL Izard # (Auto) 400 (0-900) /uL Eos # (Auto) 100 (0-450) /uL Baso # (Auto) 0 (0-100) /uL PT (10.1-12.7) SECONDS INR (0.9-1.3) APTT (26.4-36.2) SECONDS Sodium 141 (137-145) mmol/L Potassium 4.5 (3.4-5.1) mmol/L Chloride 105 (98-107) mmol/L Carbon Dioxide 26 (22-32) mmol/L BUN 10 (7-17) mg/dL Creatinine 0.60 (0.52-1.04) mg/dL Estimated GFR > 60.0 (>60) mL/min BUN/Creatinine Ratio 16.7 (6-22) Glucose 82 (70-100) mg/dL Lactate (0.7-2.1) mmol/L Calcium 9.7 (8.4-10.2) mg/dL Total Bilirubin 0.9 (0.2-1.3) mg/dL AST 48 H (14-36) IU/L ALT 20 (9-52) IU/L Alkaline Phosphatase 70 (38-126) U/L Total Creatine Kinase 92 (30-135) U/L CK-MB (CK-2) TNP CK-MB (CK-2) Rel Index TNP Troponin I < 0.012 (0.01-0.034) ng/mL Total Protein 7.2 (6.3-8.2) g/dL Albumin 4.5 (3.5-5.0) g/dL Globulin 2.7 (1.7-4.1) g/dL Albumin/Globulin Ratio 1.7 (1.0-2.8) Amylase (30-110) U/L Lipase 85 (23-300) U/L Urine RBC (0-5/HPF) Urine WBC (0-5/HPF) Ur Squamous Epith Cells (0-5/HPF) Urine Bacteria (None) Ur Culture Indicated? 08/20/18 08/20/18 08/20/18 Range/Units 14:05 14:30 14:30 WBC (4.5-11.0) X10^3/uL RBC (4.0-5.2) X10^6/uL Hgb (12.0-16.0) g/dL Hct (36-46) % MCV (80-100) fL MCH (26-34) PG MCHC (30-36) % RDW (11.6-14.8) % Plt Count (150-400) X10^3/uL Neut % (Auto) (50-75) % Lymph % (Auto) (25-40) % Izard % (Auto) (3-14) % Eos % (Auto) (2-4) % Baso % (Auto) (0-2) % Neut # (Auto) (7044-0986) /uL Lymph # (Auto) (5263-9682) /uL Izard # (Auto) (0-900) /uL Eos # (Auto) (0-450) /uL Baso # (Auto) (0-100) /uL PT 11.3 (10.1-12.7) SECONDS INR 1.0 (0.9-1.3) APTT 38 H (26.4-36.2) SECONDS Sodium (137-145) mmol/L Potassium (3.4-5.1) mmol/L Chloride (98-107) mmol/L Carbon Dioxide (22-32) mmol/L BUN (7-17) mg/dL Creatinine (0.52-1.04) mg/dL Estimated GFR (>60) mL/min BUN/Creatinine Ratio (6-22) Glucose (70-100) mg/dL Lactate 1.2 (0.7-2.1) mmol/L Calcium (8.4-10.2) mg/dL Total Bilirubin (0.2-1.3) mg/dL AST (14-36) IU/L ALT (9-52) IU/L Alkaline Phosphatase (38-126) U/L Total Creatine Kinase (30-135) U/L CK-MB (CK-2) CK-MB (CK-2) Rel Index Troponin I (0.01-0.034) ng/mL Total Protein (6.3-8.2) g/dL Albumin (3.5-5.0) g/dL Globulin (1.7-4.1) g/dL Albumin/Globulin Ratio (1.0-2.8) Amylase 102 (30-110) U/L Lipase (23-300) U/L Urine RBC (0-5/HPF) Urine WBC (0-5/HPF) Ur Squamous Epith Cells (0-5/HPF) Urine Bacteria (None) Ur Culture Indicated? 08/20/18 Range/Units 16:30 WBC (4.5-11.0) X10^3/uL RBC (4.0-5.2) X10^6/uL Hgb (12.0-16.0) g/dL Hct (36-46) % MCV (80-100) fL MCH (26-34) PG MCHC (30-36) % RDW (11.6-14.8) % Plt Count (150-400) X10^3/uL Neut % (Auto) (50-75) % Lymph % (Auto) (25-40) % Izard % (Auto) (3-14) % Eos % (Auto) (2-4) % Baso % (Auto) (0-2) % Neut # (Auto) (0899-8327) /uL Lymph # (Auto) (5127-8955) /uL Izard # (Auto) (0-900) /uL Eos # (Auto) (0-450) /uL Baso # (Auto) (0-100) /uL PT (10.1-12.7) SECONDS INR (0.9-1.3) APTT (26.4-36.2) SECONDS Sodium (137-145) mmol/L Potassium (3.4-5.1) mmol/L Chloride (98-107) mmol/L Carbon Dioxide (22-32) mmol/L BUN (7-17) mg/dL Creatinine (0.52-1.04) mg/dL Estimated GFR (>60) mL/min BUN/Creatinine Ratio (6-22) Glucose (70-100) mg/dL Lactate (0.7-2.1) mmol/L Calcium (8.4-10.2) mg/dL Total Bilirubin (0.2-1.3) mg/dL AST (14-36) IU/L ALT (9-52) IU/L Alkaline Phosphatase (38-126) U/L Total Creatine Kinase (30-135) U/L CK-MB (CK-2) CK-MB (CK-2) Rel Index Troponin I (0.01-0.034) ng/mL Total Protein (6.3-8.2) g/dL Albumin (3.5-5.0) g/dL Globulin (1.7-4.1) g/dL Albumin/Globulin Ratio (1.0-2.8) Amylase (30-110) U/L Lipase (23-300) U/L Urine RBC 0-1/hpf (0-5/HPF) Urine WBC 0-1/hpf (0-5/HPF) Ur Squamous Epith Cells 0-1 /hpf (0-5/HPF) Urine Bacteria None seen (None) Ur Culture Indicated? Cult not indicated Point of care testing: Urine Dip Bedside Urine Glucose Negative Bedside Urine Bilirubin - Negative Bedside Urine Ketone ++ 40 Urine Specific [place] 1.015 Bedside Urine Occult Blood - Negative Bedside Urine pH 6.5 Bedside Urine Protein - Negative Bedside Urine Urobilinogen - Negative Bedside Urine Nitrite - Negative Bedside Urine Leukocytes +/- 15 Esterase Discharge Plan Departure Patient Disposition: Home Clinical Impression: Abdominal pain Qualifiers: Abdominal location: right lower quadrant Qualified Code(s): R10.31 - Right lower quadrant pain Discharge Date/Time: 08/20/18 17:24 Interventions: ED Discharge Assessment Last Done: 08/20/18 17:23 Instructions: DI for Abdominal Pain-Adult Activity Restrictions/Additional Instructions: Your lab work came back well today. Your ultrasound has no acute etiology. I have given you some pain and nausea medication. Please follow up with primary care provider as well as her surgeon. Please come back to the emergency department for any acute concerns such as abdominal pain with fever, inability keep down fluids etc. Please be aware that tramadol can be sedating and constipating. There can be a related allergy between hydrocodone and tramadol, so please be careful taking it and monitor for any allergy. Come back to the ER for any acute concerns. Prescriptions: New tramadol 50 mg tablet 50 mg PO TID PRN (Reason: pain) Qty: 10 RF: 0 ondansetron 4 mg tablet,disintegrating 4 mg PO Q8H PRN (Reason: nausea and vomiting) Qty: 30 RF: 0 No Action multivitamin tablet 1 tab PO DAILY RF: 0 famotidine [Pepcid] 20 mg tablet 20 mg PO DAILY PRN (Reason: Acid Reflux) RF: 0 melatonin 10 mg tablet 10 mg PO BEDTIME PRN (Reason: Insomnia) RF: 0 fluoxetine 10 mg capsule 20 mg PO BEDTIME RF: 0 diazepam 5 mg tablet 5 mg PO Q8H PRN (Reason: anxiety or muscle relaxation) RF: 0 Referrals: Nam Portillo MD [Primary Care Provider] -
[2018-08-20 14:33] LABS: Amylase 102 U/L (30-110)
--- NOTE | 2018-08-20 14:34 | PC.NURSE ---
Called Dr Prather office and got pt an appointment with him tomorrow at 345.
[2018-08-20 14:39] LABS: Alanine Aminotransferase 20 IU/L (9-52); Albumin 4.5 g/dL (3.5-5.0); Albumin Globulin Ratio 1.7 (1.0-2.8); Alkaline Phosphatase 70 U/L (38-126); Aspartate Aminotransferase 48 IU/L (14-36); BUN Creatinine Ratio 16.7 (6-22); Bilirubin Total 0.9 mg/dL (0.2-1.3); Blood Urea Nitrogen 10 mg/dL (7-17); Calcium 9.7 mg/dL (8.4-10.2); Carbon Dioxide 26 mmol/L (22-32); Chloride 105 mmol/L (98-107); Estimated Glomerular Filt Rate > 60.0 mL/min (>60); Globulin 2.7 g/dL (1.7-4.1); Glucose 82 mg/dL (70-100); Lipase 85 U/L (23-300); Potassium 4.5 mmol/L (3.4-5.1); Sodium 141 mmol/L (137-145); Total Protein 7.2 g/dL (6.3-8.2)
[2018-08-20 14:40] LABS: Creatine Kinase 92 U/L (30-135); HEMOLYSIS 119 (0-50)
[2018-08-20 14:43] LABS: Prothrombin Time 11.3 SECONDS (10.1-12.7)
[2018-08-20 14:46] LABS: PTT Partial Thromboplastin Tim 38 SECONDS (26.4-36.2)
[2018-08-20 14:47] LABS: Lactate (Lactic Acid) 1.2 mmol/L (0.7-2.1)
[2018-08-20 14:51] LABS: Troponin I < 0.012 ng/mL (0.01-0.034)
[2018-08-20 17:00] VITALS: BP 138/86; PULSE 67; RESP 18; O2SAT 100
[2018-08-20 17:02] LABS: Bacteria Urine None Seen
[2018-08-20 17:04] LABS: Culture Indicated Urine Cult Not Indicated; RBC Urine 0-1/HPF (0-5/HPF); Squamous Epithelial Cell Urine 0-1 /HPF (0-5/HPF); WBC Urine 0-1/HPF (0-5/HPF)
[2018-08-20 17:23] VITALS: BP 140/87; PULSE 64; RESP 20; O2SAT 99
== END 2018-08-20 17:24 | disposition home or self-care (01) ==
PROVIDERS: Emergency Medicine; Emergency Provider Nurse Practitioner Family; PCP Family Medicine
DX: R10.31 Right lower quadrant pain (principal); R00.1 Bradycardia, unspecified
CPT/HCPCS: 36415; 36591; 76705; 80053; 81003; 81015; 82150; 82550; 83605; 83690; 84484; 85025; 85610; 85730; 93005; 96361; 96374; 99283; 99285; J2405

== ENCOUNTER 2018-09-02 13:09 | Day surgery (SDC) | payer OTHER, MEDICAID, SELFPAY ==
[2018-08-28 08:07] VITALS: BMI 20.1
[2018-09-02] VITALS (8 sets, daily range): BP systolic 100–131; BP diastolic 67–89; PULSE 69–83; RESP 15–24; TEMP 36.6–36.8; O2SAT 95–100; BMI 20.1
--- NOTE | 2018-09-02 | PATH_ITS ---
[facility] Accession Number: [id number] . 01 Material submitted: . gallbladder - GALLBLADDER AND CONTENTS . 02 Diagnosis: Gallbladder: Mild chronic cholecystitis. No calculi identified. Small benign lymph node. MRV/09/04/2018 . 02 Electronically signed: . Steve Geiger MD, Pathologist NPI- [id number] . 01 Gross description: . Received in formalin, labeled gallbladder + content, is an intact gallbladder (length-6.5 cm, diameter-2.8 cm) with wild-purple smooth shiny serosa and a patent cystic duct. A possible lymph node (0.5 x 0.2 x 0.1 cm) is identified. The lumen contains dark green viscous bile. No calculi are present. The mucosa is dark green and semi-velvety. The wall is up to 0.1 cm thick. No nodules, masses or lesions are identified. Section code: (A1) cystic duct resection margin and two serial sections from the body; (A) two longitudinal sections from the fundus; (A3) one intact lymph node. ([id number]) /MRV . 02 Pathologist provided ICD-10: K81.1 . 02 CPT . 087976 Performed at: 01 [facility] [address], [place], [place] [id number] MD Kirk Klein MD Phone: [phone] Performed at: 02 [facility] [address] [place], [place] [id number] MD Gia Avendano MD Phone: [phone]
--- NOTE | 2018-09-02 13:17 | PM.HP.1 ---
History of Present Illness Date Patient Seen: 09/02/18 Time Patient Seen: 13:17 Chief complaint: [id number] Narrative: Patient seen and examined unchanged since recent clinic note Plan for laparoscopic let cholecystectomy for biliary dyskinesia, will also evaluate spleen Patient History Medical History (Updated 09/01/18 @ 07:56 by Jossy Galvez RN) ADD (attention deficit disorder) (Acute) Acid reflux (Acute) Anxiety (Acute) Biliary dyskinesia (Acute) Depression (Acute) Heart murmur (Acute) Neck pain (Acute) PTSD (post-traumatic stress disorder) (Acute) Splenic mass (Acute) Upper back pain (Acute) History of pancreatitis (Acute) Surgical History No pertinent past surgical history (Acute) Social History marital status: number of children: 3 household members: spouse Smoking Status: Former smoker alcohol intake: former substance use type: marijuana Family & Social History Social History: household members spouse Tobacco & Substance use: Smoking Status Former smoker alcohol intake former alcohol intake frequency other Substance Use Type marijuana Meds Home Medications Medication Instructions Recorded Confirmed Type famotidine 20 mg tablet 20 mg PO DAILY PRN 08/03/18 08/28/18 History melatonin 10 mg tablet 10 mg PO BEDTIME PRN 08/03/18 08/28/18 History multivitamin tablet 1 tab PO DAILY 08/03/18 08/28/18 History diazepam 5 mg PO Q8H PRN 08/20/18 08/28/18 History fluoxetine 20 mg PO BEDTIME 08/20/18 08/28/18 History ondansetron 4 mg PO Q8H PRN #30 tab 08/20/18 08/28/18 Rx tramadol 50 mg PO TID PRN #10 tab 08/20/18 08/28/18 Rx Allergies Allergy/AdvReac Type Severity Reaction Status Date / Time hydrocodone [From Vicodin] Allergy Itching Verified 09/01/18 07:59
[2018-09-02] MEDS: LACTATED RINGERS 1,000 ML 42 ML IV (13:34)
[2018-09-02] MEDS: APREPITANT 40 MG CAPSULE PO (13:50)
[2018-09-02] MEDS: MIDAZOLAM 2 MG/2 ML VIAL IV (13:52)
[2018-09-02] MEDS: CEFTRIAXONE 2 GM/50 ML FROZ.PIGGY IV (14:02)
--- NOTE | 2018-09-02 14:11 | SUR.OPER ---
Supine on padded OR bed, head on pillow, arms secured on padded arm boards at <90 degrees abduction, legs uncrossed, safety belt at thigh, tape over blanket over lower legs. Foot board at end of bed.
[2018-09-02] MEDS: BUPIVACAINE 0.25% W/ EPI 30 ML VIAL INJ (14:32)
[2018-09-02] MEDS: ACETAMINOPHEN IV 1,000 MG/100 ML VIAL 400 MG IV (14:45)
--- NOTE | 2018-09-02 15:18 | PM.OP.1 ---
Operative Date/Time/Diagnoses Date of procedure: 09/02/18 Time of procedure: 15:19 Pre-op diagnosis: Biliary dyskinesia Splenic hemangiomas Post-op diagnosis: same Procedure & Clinicians Procedure: Laparoscopic cholecystectomy Laparoscopic splenic exploration Same procedure as scheduled: Yes Indications: 58-year-old woman with typical biliary symptoms/right upper quadrant colicky pain -found on HIDA scan to have low ejection fraction. Identified to have for splenic masses consistent with hemangiomas on ultrasound, CT and MRI imaging, by PET scan not hypermetabolic Surgeon: Sea Tillman Click Yes if Unassisted: Yes Anesthesia Type: General Operative Notes Findings: Gallbladder without active inflammation Critical view of safety obtained, anatomy clear Spleen with several bulbous masses -dark, pupruic -consistent with hemangioma Closure Type: primary Specimen(s): other (gallbladder ) Estimated Blood Loss (mL): 10 Procedure in detail: Patient was brought to the operating room she was prepped and draped in usual sterile fashion a time-out was completed. Entry into the abdomen was performed using Veress needle technique a small wheal of local anesthetic was raised over patel's point and a Veress needle was advanced with a distinct click upon entering the abdomen. There was no succus or blood upon aspiration however there was not a confirmatory saline drop test. Insufflation tubing was connected and initial pressures were high. The Veress needle was removed and reinserted. Again a distinct click was encountered upon entering the abdomen this time however there was a confirmatory saline drop test and initial insufflation pressure low. The abdomen was insufflated to 15 mm of mercury a small 5 mm incision was placed at the superior umbilical crown using Visiport technique a 5 mm port was advanced visualizing the layers of the abdominal wall until the dark space of the insufflated abdomen was entered. Upon entering the abdomen the Veress needle site was inspected the Veress was well placed with in the peritoneal cavity. However there was a left liver lobe injury from the initial Veress needle insertion site this was carefully inspected and was found to be hemostatic a small amount perhaps several cc of blood had blood from the area but had since clotted. The under surface of the liver was inspected the needle had not pass through Bean's capsule posteriorly and as a consequence I was not suspicious for additional injury. I carefully inspected however the lesser curvature and the body of the stomach was no injury or bleeding in this area at all. Then proceeded to perform the cholecystectomy. Two 5 mm ports were in placed into the right upper quadrant additional 11 port placed into the epigastric area. The fundus of the gallbladder was grasped and elevated cephalad and the infundibulum was grasped retracted laterally. The visceral peritoneum of the gallbladder was then incised on the medial lateral aspects of the gland opening up the gallbladder triangle. Quite easily with blunt dissection the cystic artery and the cystic duct were readily identified windows were made behind both structures -only 2 structures were visualized in this area and both ended directly in the gallbladder itself. These were clipped and divided without incident with a single-lumen identified in each. Gallbladder was then reflected all the gallbladder fossa without incident placed in Endo-Catch bag and removed from the abdomen via the epigastric port site. We then proceeded to inspect the spleen -an additional 5 mm port was placed at the midclavicular line on the left side. The left lobe of the liver was retracted medially exposing the spleen inspecting this area there were several nodules identified. These were bulbous per per rec without violation of the splenic capsule. The appeared consistent with hemangiomas. Due to the obvious vascularity of these lesions no attempt was made to biopsy them. I made a final inspection of the gallbladder dissection area as well as the liver puncture site both were hemostatic and clips were well placed. 11 mm port site fascial defect was then closed using 0 Vicryl simple interrupted ties utilizing a suture Passer device. At this point trocars were removed under direct visualization, the abdomen was deinsufflated, skin was closed using monofilament absorbable suture in a subcuticular fashion. Skin glue was applied the patient was extubated and brought to PACU without incident Complications: other (Small injury to left lobe the liver from Veress needle entry, no further therapy required) Condition: stable Disposition: PACU Plan for aftercare: Discharge home
[2018-09-02] MEDS: HYDROMORPHONE 2 MG INJ 0.5 MG IV ×2 (15:50→15:58)
--- NOTE | 2018-09-02 15:54 | SUR.PHASEI ---
1550 Medicated for pain - see emar. c/o shoulder pain as well, patient repositioned.
[2018-09-02] MEDS: LACTATED RINGERS 1,000 ML 100 ML IV (16:03)
--- NOTE | 2018-09-02 16:15 | SUR.PHASEI ---
Sleeping, Resp unlabored, skin warm and dry.
[2018-09-02] MEDS: OXYCODONE IR 5 MG TABLET PO (16:34)
--- NOTE | 2018-09-02 16:40 | SUR.PHASEI ---
1627 awake, states that she has pain in the abdomen and shoulder (abdomen worse than shoulder). Calm, relaxed appearance. Moved to [facility], spouse to bedside.
--- NOTE | 2018-09-02 16:43 | SUR.PHASEI ---
1627 Report to Jodi Figueroa RN.
== END 2018-09-02 17:03 | disposition home or self-care (01) ==
PROVIDERS: PCP Student in an Organized Health Care Education/Training Program; Visit Provider Surgery
PROC: 0FT44ZZ Resection of Gallbladder, Percutaneous Endoscopic Approach (ICD-10-PCS; CPT 47562; principal; 2018-09-02 14:45)
DX: K81.1 Chronic cholecystitis (principal); R16.1 Splenomegaly, not elsewhere classified; E36.1 Accidental puncture and laceration of an endocrine system organ or structure during a procedure
CPT/HCPCS: 47562; J0131; J0330; J0696; J1100; J1170; J2250; J2405; J2704; J3010; J8501

== ENCOUNTER → 2018-11-02 12:02 | Outpatient (CLI) | payer OTHER, MEDICAID, SELFPAY ==
--- NOTE | 2018-11-02 | DI.MG.S_ITS ---
BILATERAL DIGITAL SCREENING MAMMOGRAM 3D/2D WITH CAD: 11/02/2018 CLINICAL: Routine screening. Family history of breast cancer. Comparison is made to exams dated: 10/31/2016 mammogram, 10/12/2014 mammogram, 07/15/2012 mammogram - [facility], 04/13/2010 mammogram, and 12/30/2007 mammogram - [facility]. There are scattered fibroglandular elements in both breasts. Current study was also evaluated with a Computer Aided Detection (CAD) system. No significant masses, calcifications, or other findings are seen in either breast. There has been no significant interval change. IMPRESSION: NEGATIVE There is no mammographic evidence of malignancy. A 1 year screening mammogram is recommended. This exam was interpreted at Station ID: [id number]. NOTE: For mammograms, a report in lay terms will be sent to the patient. Approximately 15% of breast malignancies will not be visualized mammographically. In the management of a palpable breast mass, a negative mammogram must not discourage biopsy of a clinically suspicious lesion. Electronically Signed By: Triston wiseman/rocky:11/02/2018 13:11:57 letter sent: Normal Exam ACR BI-RADS Category 1: Negative [id number]
== END ==
PROVIDERS: PCP Student in an Organized Health Care Education/Training Program; Visit Provider Student in an Organized Health Care Education/Training Program
DX: Z12.31 Encounter for screening mammogram for malignant neoplasm of breast (principal); Z80.3 Family history of malignant neoplasm of breast
CPT/HCPCS: 77063; 77067

== ENCOUNTER → 2019-02-02 10:42 | Outpatient (CLI) | payer OTHER, MEDICAID, SELFPAY ==
--- NOTE | 2019-02-02 | DI.US.S_ITS ---
PROCEDURE: US ABDOMEN COMPLETE INDICATIONS: SPLENIC MASSES TECHNIQUE: Real-time scanning was performed of the abdominal and retroperitoneal organs, with image documentation. COMPARISON: [facility], US, US ABDOMEN LIMITED, 04/01/2018, 8:13. [facility], US, ABDOMEN COMPLETE, 12/13/2010, 10:39. [facility], CT, CT ABDOMEN PELVIS W CON, 02/24/2018, 19:59. [facility], MR, MR ABDOMEN WO/W CON, 07/17/2018, 14:14. [facility], NM, NM PET CT FUSION SKULL 2 THIGH, 04/08/2018, 16:01. [facility], US, US ABDOMEN LIMITED, 08/20/2018, 14:57. [facility], US, US ABDOMEN COMPLETE, 02/24/2018, 19:33. FINDINGS: Liver: Liver is normal in size and homogeneous in echotexture. Gallbladder: Surgically absent Biliary ducts: Intrahepatic bile ducts are non-dilated. Extrahepatic bile duct caliber measures 3.9 mm. Normal is 6-7 mm or less in diameter, or 10 mm or less post-cholecystectomy. Pancreas: Visualized portions of the pancreas are sonographically normal. Spleen: Spleen is normal in size. There are 2 hyperechoic masses in spleen measuring 3.1 x 2.4 x 2.9 cm (previously 3.5 x 2.7 x 2.2 cm) and 3.3 x 3.3 x 3.5 cm (previously 3.0 x 3.0 x 3.1 cm). On Doppler ultrasound, is no definite internal vascularity. Kidneys: Kidneys are normal in size and echotexture. Right kidney measures 10.1 cm long; left kidney measures 10.4 cm long. No hydronephrosis or nephrolithiasis. No solid masses. Aorta: Visualized aorta is normal in caliber at less than 3 cm. Iliacs: Proximal common iliac arteries are normal in caliber at less than 2.5 cm. IVC: Intrahepatic inferior vena cava is patent. Miscellaneous: No free abdominal fluid. IMPRESSION: 1. Two hyperechoic masses in spleen measuring 3.1 x 2.4 x 2.9 cm (previously 3.5 x 2.7 x 2.2 cm) and 3.3 x 3.3 x 3.5 cm (previously 3.0 x 3.0 x 3.1 cm). On Doppler ultrasound, is no definite internal vascularity. Continued followup is suggested. Dictated by: Jelani Almonte M.D. on 02/02/2019 at 12:59 Approved by: Jelani Almonte M.D. on 02/02/2019 at 13:31
== END ==
PROVIDERS: PCP Student in an Organized Health Care Education/Training Program; Visit Provider Student in an Organized Health Care Education/Training Program
DX: R16.1 Splenomegaly, not elsewhere classified (principal); Z90.49 Acquired absence of other specified parts of digestive tract
CPT/HCPCS: 76700

== ENCOUNTER 2019-04-02 13:49 | Day surgery (SDC) | payer OTHER, MEDICAID, SELFPAY ==
--- NOTE | 2019-04-02 | PATH_ITS ---
[facility] Accession Number: [id number] . 01 Material submitted: . PART A: duodenum - DUODENUM PART B: gastrointestinal site - ANTRUM PART C: gastrointestinal site - FUNDUS PART D: gastrointestinal site - BODY PART E: gastrointestinal site - BODY MASS PART F: esophagus - GE JUNCTION 9:00 PART G: colon - CECAL BIOPSY RANDOM PART H: colon - ASCENDING BIOPSIES PART I: colon - TRANSVERSE BIOPSIES PART J: colon - DESCENDING BIOPSIES PART K: colon - SIGMOID BIOPSY . 01 Clinical history: . A-F: CHECK FOR H.PYLORI G: DIARRHEA E: ABNORMAL 2X1.5CM . 02 Diagnosis: A. Duodenum, Biopsy: Small bowel mucosa with no diagnostic abnormality. Negative for active inflammation, features of sprue, dysplasia, or malignancy. . B. Antrum, Biopsy: Gastric antral mucosa with mild chronic inflammation. Negative for Helicobacter organisms by immunohistochemistry. Negative for intestinal metaplasia. Negative for dysplasia or malignancy. . C,D. Stomach Fundus, Body, Biopsies: Gastric body mucosa with minimal chronic inflammation. No evidence of Helicobacter organisms on H/E stain. Negative for intestinal metaplasia. Negative for dysplasia or malignancy. . E. Designated Body Mass, Biopsy: Gastric body mucosa with mild chronic inflammation; please see comment. Negative for Helicobacter organisms by immunohistochemistry. Negative for intestinal metaplasia on Alcian blue stain. Negative for dysplasia or malignancy. Additional step sections examined. . F. Gastroesophageal Junction, 9 o'clock, Biopsy: Squamocolumnar junction mucosa with mild chronic inflammation. Negative for specialized intestinal metaplasia on Alcian blue stain. Negative for dysplasia or malignancy. . G-K. Cecum, Ascending, Transverse, Descending and Sigmoid Colon, Biopsies: Colonic mucosa with no diagnostic abnormality. Negative for active, chronic, and microscopic colitis. Negative for dysplasia and malignancy. [facility] 04/06/2019 1625 Local . 02 Comment: E. The endoscopic impression of a gastric body mass is noted; however, there are no histologic findings which explain a mass. A submucosal mass or extrinsic mass cannot be excluded in these superficial mucosal biopsies. . 02 Electronically signed: . Francois Mena MD, PhD, Pathologist NPI- [id number] . 01 Gross description: . Part A: DUODENUM: Received in formalin are 3 fragment(s) of kennedy, soft tissue measuring 0.3 x 0.3 x 0.2 cm to 0.2 x 0.1 x 0.1 cm submitted entirely in 1 cassette(s) Part B: ANTRUM: Received in formalin are 2 fragment(s) of kennedy, soft tissue measuring 0.3 x 0.2 x 0.2 cm to 0.2 x 0.1 x 0.1 cm submitted entirely in 1 cassette(s) Part C: FUNDUS: Received in formalin is 1 fragment(s) of kennedy, soft tissue measuring 0.2 x 0.2 x 0.2 cm submitted entirely in 1 cassette(s) Part D: BODY: Received in formalin is 1 fragment(s) of kennedy, soft tissue measuring 0.3 x 0.3 x 0.2 cm submitted entirely in 1 cassette(s) Part E: BODY MASS: Received in formalin is 1 fragment(s) of kennedy, soft tissue measuring 0.3 x 0.2 x 0.2 cm submitted entirely in 1 cassette(s) Part F: GE JUNCTION 9:00: Received in formalin is 1 fragment(s) of kennedy, soft tissue measuring 0.3 x 0.2 x 0.1 cm submitted entirely in 1 cassette(s) Part G: CECAL BIOPSY RANDOM: Received in formalin are 2 fragment(s) of kennedy, soft tissue measuring 0.5 x 0.2 x 0.1 cm to 0.3 x 0.1 x 0.1 cm submitted entirely in 1 cassette(s) Part H: ASCENDING BIOPSIES: Received in formalin are 4 fragment(s) of kennedy, soft tissue measuring 0.6 x 0.3 x 0.1 cm to 0.3 x 0.3 x 0.1 cm submitted entirely in 1 cassette(s) Part I: TRANSVERSE BIOPSIES: Received in formalin are 4 fragment(s) of kennedy, soft tissue measuring 0.4 x 0.3 x 0.1 cm to 0.3 x 0.2 x 0.1 cm submitted entirely in 1 cassette(s) Part J: DESCENDING BIOPSIES: Received in formalin are 2 fragment(s) of kennedy, soft tissue measuring 0.4 x 0.3 x 0.1 cm to 0.3 x 0.3 x 0.1 cm submitted entirely in 1 cassette(s) Part K: SIGMOID BIOPSY: Received in formalin are 4 fragment(s) of kennedy, soft tissue measuring 0.4 x 0.3 x 0.1 cm to 0.3 x 0.3 x 0.1 cm submitted entirely in 1 cassette(s) /QBJ 04/03/2019 0733 Local . 02 Microscopic: . B. An immunohistochemical stain was performed to evaluate for Helicobacter organisms and is negative. The control stain showed appropriate reactivity. . E. An immunohistochemical stain is performed to evaluate for Helicobacter organisms, and is negative. An AB/PAS stain is negative for intestinal metaplasia. Control stains show appropriate reactivity. . F. An Alcian blue stain is performed to evaluate for specialized intestinal metaplasia, and is negative for Goblet cells. The control stain showed appropriate reactivity. . * This test was developed and its performance characteristics determined by [facility]. It has not been cleared or approved by the U.S. Food and Drug Administration. The FDA has determined that such clearance or approval is not necessary. This test is used for clinical purposes. It should not be regarded as investigational or for research. . 02 Pathologist provided ICD-10: K29.70, K20.9, R19.7 . 02 CPT . 307634, 181531, 336001, 069459, 014204, 534050, 899764, 843957, 421237, 547327, 766420, J39431, Z97421, 771897, 273826 Performed at: 01 [facility] [address] [facility], [place], [place] [id number] MD Kirk Klein MD Phone: [phone] Performed at: 02 [facility] [place] [address] [place], [place] [id number] MD Gia Avendano MD Phone: [phone]
--- NOTE | 2019-04-02 07:34 | PM.OP.ENDO ---
Operative Date/Time/Diagnoses Date of procedure: 04/02/19 Time of procedure: 15:23 Pre-op diagnosis: 1. Abdominal pain, right upper quadrant 2. Abdominal bloating Post-op diagnosis: other (1. Gastritis, 2. Hiatal hernia, small, 3. Irregular Z-line ) Procedure & Clinicians Study performed: EGD Same procedure as scheduled: Yes Indications: 1. Abdominal pain, right upper quadrant 2. Abdominal bloating Surgeon: Ruby Laura Procedure Notes Procedure in detail: ENDOSCOPIST: Ruby Laura MD Sedation RN: Prem Tai RN Sedation start time: 15:12 Sedation end time: 15:23 PROCEDURE: EGD with biopsy REFERRING PROVIDER: Nico Adan MD INDICATIONS: 1. Abdominal pain, right upper quadrant 2. Abdominal bloating MEDICATION: Incremental doses of Versed and fentanyl until an appropriate level of sedation was achieved. ASA Ratin DURATION OF PROCEDURE: 12 minutes. COMPLICATIONS: None. LIMITATIONS: None EXTENT OF PROCEDURE: Third portion of the Duodenum. PROCEDURE: The high-definition gastroduodenoscope was introduced into the posterior oropharynx under direct vision after Hurricaine spray, noted IV sedation, and proper informed consent. The esophagus was identified and intubated under direct visualization. The scope was quickly passed through the esophagus and into the fundus of the stomach. A clear fundal pool was aspirated. The scope was then advanced to the antrum and the pylorus was identified. The scope was passed through the pylorus into the second and third portions of the duodenum. No abnormalities were noted in the duodenum, duodenal bulb or pyloric channel. Random biopsies taken x4. The antrum was erythematous and has superficial hyperemesis throughout, targeted biopsy taken x2. J maneuver was produced. No abnormalities were noted of the proximal body, fundus or cardia. A small hiatal hernia was noted. Scope was broken out of the J maneuver and the remainder of the stomach was carefully inspected upon withdrawal and was noted to have linear erythematous markings, targeted biopsy taken x2. There was a 2 x 1.5 cm mass that was friable and targeted biopsy taken x1. The stomach was carefully deflated of all air on withdrawal. The distal esophagus was carefully inspected and Z-line noted to be irregular, C1M0. The remainder of the esophagus was normal upon withdrawal. The larynx and vocal cords appeared to be unremarkable. IMPRESSION: 1. Gastritis, antrum, body 2. Hiatal hernia, small 3. Irregular Z-line with endoscopically suspected esophageal metaplasia, C1M0 PLAN: 1. Follow-up in clinic status post pathology results. The possibility of missed lesion including a malignancy was discussed prior with the patient. Potential alarm symptoms have been discussed and should be reported by the patient immediately.
--- NOTE | 2019-04-02 07:36 | PM.OP.ENDO ---
Operative Date/Time/Diagnoses Date of procedure: 04/02/19 Time of procedure: 15:49 Pre-op diagnosis: 1. Abdominal pain, right upper quadrant 2. Diarrhea 3. Abdominal bloating 4. Screening for colon cancer Post-op diagnosis: same (1. Normal colonoscopy) Procedure & Clinicians Study performed: Colonoscopy Same procedure as scheduled: Yes Indications: 1. Abdominal pain, right upper quadrant 2. Diarrhea 3. Abdominal bloating 4. Screening for colon cancer Surgeon: Ruby Laura Procedure Notes SCOAP/Timeout: 15:12 Procedure in detail: ENDOSCOPIST: Ruby Laura MD Sedation RN: Prem Tai RN Sedation start time: 3:49 p.m. Sedation end time: 4:18 p.m. PROCEDURE: Colonoscopy with random biopsies INDICATIONS: 1. Abdominal pain, right upper quadrant 2. Diarrhea 3. Abdominal bloating 4. Screening for colon cancer MEDICATION: Levsin 0.125 mg sublingual, incremental doses of Versed and fentanyl until appropriate level sedation achieved. ASA CLASS: 2 CECAL WITHDRAWAL TIME: 16 minutes COMPLICATIONS: None. EXTENT OF PROCEDURE: Cecum. QUALITY OF PREP: Good with portions of liquid stool. PROCEDURE: Prior to insertion of the colonoscope, a digital rectal examination was accomplished with circumferential palpation of the distal rectal mucosa without significant findings being noted. The high-definition colonoscope was passed into the rectum in the usual fashion and advanced over to the cecum without difficulty. The ileocecal valve, appendiceal stoma, and medial wall all could be inspected and no abnormalities were seen. Random biopsies were taken throughout withdrawal secondary to diarrhea. ASCENDING COLON: As the colonoscope was withdrawn, care was taken to expose and inspect the haustral folds and no abnormalities were seen. HEPATIC FLEXURE: Normal no polyps, diverticula or other abnormalities. TRANSVERSE COLON: Normal no polyps, diverticula or other abnormalities. DESCENDING COLON: Normal no polyps, diverticula or other abnormalities. SIGMOID COLON: Normal no polyps, diverticula or other abnormalities. RECTUM: Normal. J maneuver was produced. There was no significant perianal disease. The J maneuver was broken. The remainder of the rectum was inspected and there was no external hemorrhoid disease. The scope was withdrawn. IMPRESSION: 1. Normal colonoscopy PLAN: 1. Follow-up in clinic status post pathology results. The possibility of a missed lesion including a malignancy has been discussed with the patient previously. Potential alarm symptoms have been discussed and should be reported immediately. Complications: none Post-procedure Recommendations: Will call with biopsy results Follow up: weeks (2) Disposition: PACU
[2019-04-02 14:43] VITALS: BP 125/89; PULSE 80; RESP 16; TEMP 36.8; O2SAT 100; BMI 18.9
[2019-04-02] MEDS: HYOSCYAMINE 0.125 MG TABLET PO (14:50)
[2019-04-02] MEDS: SODIUM CHLORIDE 0.9% 1,000 ML 200 ML IV ×2 (15:00→16:06)
--- NOTE | 2019-04-02 15:02 | PM.PREOP ---
Pre-operative Note Interval Note History & Physical reviewed/Exam performed by Physician: Yes Changes to H&P: No ASA Class (for procedural sedation): II
[2019-04-02] MEDS: fentaNYL 250 MCG/5 ML INJ IV (16:22)
[2019-04-02] MEDS: LIDOCAINE JELLY 2% 5 ML 1 APPLIC TOP (16:22)
[2019-04-02] MEDS: LIDOCAINE 4% SOLN 50 ML 20 ML TOP (16:22)
[2019-04-02] MEDS: MIDAZOLAM 5 MG/ML VIAL 4 MG IV (16:23)
[2019-04-02 16:26] VITALS: BP 131/90; PULSE 82; RESP 20; TEMP 36.2; O2SAT 100
== END 2019-04-02 16:57 | disposition home or self-care (01) ==
PROVIDERS: PCP Student in an Organized Health Care Education/Training Program; Referring Provider Student in an Organized Health Care Education/Training Program; Visit Provider Student in an Organized Health Care Education/Training Program
PROC: 0DJ08ZZ Inspection of Upper Intestinal Tract, Via Natural or Artificial Opening Endoscopic (ICD-10-PCS; CPT 43235; principal; 2019-04-02 15:00)
PROC: 0DJD8ZZ Inspection of Lower Intestinal Tract, Via Natural or Artificial Opening Endoscopic (ICD-10-PCS; CPT 45378; 2019-04-02 15:00)
DX: K44.9 Diaphragmatic hernia without obstruction or gangrene (principal); K29.50 Unspecified chronic gastritis without bleeding; K20.9 Esophagitis, unspecified
CPT/HCPCS: 43239; 45380; J2250; J3010

== ENCOUNTER → 2019-07-21 10:12 | Outpatient (CLI) | payer OTHER, MEDICAID, SELFPAY ==
--- NOTE | 2019-07-21 | DI.RAD.S_ITS ---
PROCEDURE: XR CERVICAL SPINE 2V OR 3V INDICATIONS: Neck pain TECHNIQUE: 3 view(s) of the cervical spine were acquired. COMPARISON: None. FINDINGS: Bones: No fractures or dislocations to the superior T1 level. The lateral masses of C1 appear intact on the odontoid view. No suspicious bony lesions. There is straightening of the normal cervical lordosis. There is moderate to severe disc space narrowing seen at C4-C5, with a degree of fusion seen at this level. There is partial fusion of the facet joints can be seen at this level. There is at least moderate disc space narrowing seen at C5-C6. Bridging anterior osteophytes are seen at C4-C5 and C6-C7. Soft tissues: No prevertebral soft tissue swelling. The visualized lung apices are unremarkable. IMPRESSION: Focal degenerative change is seen at C4-C5 and C6-C7. At C4-C5, there is moderate to severe disc space narrowing, with a degree of vertebral body fusion and at least partial facet joint fusion. Dictated by: Stanislaw Camacho M.D. on 07/21/2019 at 11:00 Approved by: Stanislaw Camacho M.D. on 07/21/2019 at 11:01
== END ==
PROVIDERS: PCP Student in an Organized Health Care Education/Training Program; Referring Provider Student in an Organized Health Care Education/Training Program; Visit Provider Student in an Organized Health Care Education/Training Program
DX: M54.2 Cervicalgia (principal); M47.812 Spondylosis without myelopathy or radiculopathy, cervical region; M48.02 Spinal stenosis, cervical region; M43.22 Fusion of spine, cervical region
CPT/HCPCS: 72040

== ENCOUNTER → 2020-04-10 08:04 | Outpatient (CLI) | payer MEDICARE, MEDICAID, SELFPAY ==
--- NOTE | 2020-04-10 | DI.US.S_ITS ---
PROCEDURE: US ABDOMEN COMPLETE INDICATIONS: SPLENIC MASSES TECHNIQUE: Real-time scanning was performed of the abdominal and retroperitoneal organs, with image documentation. COMPARISON: [facility], CT, CT ABDOMEN PELVIS W CON, 02/24/2018, 19:59. [facility], US, US ABDOMEN LIMITED, 04/01/2018, 8:13. FINDINGS: Liver: The liver is normal in size and appearance. Gallbladder: Gallbladder has been removed. Biliary ducts: Normal caliber intrahepatic and extrahepatic biliary ducts. Pancreas: Visualized portions of the pancreas are sonographically normal. Spleen: There are two vascular masses are identified spleen, one anteriorly measuring 3.4 x 2.8 x 3.1 cm (previously reported as 3.1 x 2.4 x 2.9 cm). The posteriorly positioned mass measures 3.8 x 3.1 x 3.5 cm (previously reported as 3.3 x 3.5 x 3.5 cm). Two additional masses demonstrated by CT have no definite sonographic correlate. Kidneys: Unremarkable appearance of both kidneys. Aorta: Visualized aorta is normal in caliber at less than 3 cm. Iliacs: Proximal common iliac arteries are normal in caliber at less than 2.5 cm. IVC: Intrahepatic inferior vena cava is patent. Miscellaneous: No free abdominal fluid. IMPRESSION: Two vascular masses in the spleen which have not significantly changed in size from the 02/24/2018 CT, allowing for differences in size due to comparison across modalities and differences in measurement technique/plane. Differential considerations include hemangiomas, lymphangioma is, and little cell angiomas. Given the minimal change in size malignancy is considered unlikely, although cannot be strictly excluded on the basis of imaging appearance alone. Dictated by: Nnamdi Fay M.D. on 04/10/2020 at 8:50 Approved by: Nnamdi Fay M.D. on 04/10/2020 at 8:54
== END ==
PROVIDERS: PCP Student in an Organized Health Care Education/Training Program; Referring Provider Student in an Organized Health Care Education/Training Program; Visit Provider Student in an Organized Health Care Education/Training Program
DX: R16.1 Splenomegaly, not elsewhere classified (principal)
CPT/HCPCS: 76700

== ENCOUNTER → 2020-11-30 12:21 | Outpatient (CLI) | payer MEDICARE, MEDICAID, SELFPAY ==
--- NOTE | 2020-11-30 12:24 | DI.MG.S_ITS ---
BILATERAL DIGITAL SCREENING MAMMOGRAM 3D/2D WITH CAD: 11/30/2020 CLINICAL: Routine screening. Family history of breast cancer. Comparison is made to exams dated: 11/02/2018 mammogram, 10/31/2016 mammogram, 10/12/2014 mammogram, and 07/15/2012 mammogram - [facility]. The tissue of both breasts is heterogeneously dense. This may lower the sensitivity of mammography. Current study was also evaluated with a Computer Aided Detection (CAD) system. No significant masses, calcifications, or other findings are seen in either breast. There has been no significant interval change. IMPRESSION: NEGATIVE There is no mammographic evidence of malignancy. A 1 year screening mammogram is recommended. This exam was interpreted at Station ID: [id number]. NOTE: For mammograms, a report in lay terms will be sent to the patient. Approximately 15% of breast malignancies will not be visualized mammographically. In the management of a palpable breast mass, a negative mammogram must not discourage biopsy of a clinically suspicious lesion. Electronically Signed By: Triston wiseman/rocky:11/30/2020 12:58:19 letter sent: Normal Exam ACR BI-RADS Category 1: Negative 3341F
== END ==
PROVIDERS: PCP Student in an Organized Health Care Education/Training Program; Referring Provider Student in an Organized Health Care Education/Training Program; Visit Provider Student in an Organized Health Care Education/Training Program
DX: Z12.31 Encounter for screening mammogram for malignant neoplasm of breast (principal); Z80.3 Family history of malignant neoplasm of breast
CPT/HCPCS: 77063; 77067

== ENCOUNTER → 2022-01-12 11:12 | Outpatient (CLI) | payer MEDICARE, MEDICAID, SELFPAY ==
--- NOTE | 2022-01-12 11:15 | DI.MG.S_ITS ---
BILATERAL DIGITAL SCREENING MAMMOGRAM 3D/2D WITH CAD: 01/12/2022 CLINICAL: Routine screening. Family history of breast cancer. Comparison is made to exams dated: 11/30/2020 mammogram, 11/02/2018 mammogram, 10/31/2016 mammogram, and 10/12/2014 mammogram - [facility]. Both breasts are heterogeneously dense, which may obscure small masses (category c / 51-75% glandular tissue). Current study was also evaluated with a Computer Aided Detection (CAD) system. No significant masses, calcifications, or other findings are seen in either breast. There has been no significant interval change. IMPRESSION: NEGATIVE There is no mammographic evidence of malignancy. A 1 year screening mammogram is recommended. This exam was interpreted at Station ID: [id number]. NOTE: For mammograms, a report in lay terms will be sent to the patient. Approximately 15% of breast malignancies will not be visualized mammographically. In the management of a palpable breast mass, a negative mammogram must not discourage biopsy of a clinically suspicious lesion. Electronically Signed By: Triston wiseman/rocky:01/14/2022 09:45:19 letter sent: Normal Exam ACR BI-RADS Category 1: Negative 3341F
== END ==
PROVIDERS: PCP Student in an Organized Health Care Education/Training Program; Referring Provider Student in an Organized Health Care Education/Training Program; Visit Provider Student in an Organized Health Care Education/Training Program
DX: Z12.31 Encounter for screening mammogram for malignant neoplasm of breast (principal); Z80.3 Family history of malignant neoplasm of breast
CPT/HCPCS: 77063; 77067

== ENCOUNTER → 2024-09-16 09:29 | Outpatient (CLI) | payer MEDICARE, SELFPAY ==
--- NOTE | 2024-09-16 09:31 | DI.MG.S_ITS ---
MM diagnostic mammo BI: 09/16/2024. BI-RADS: 1 CLINICAL: 64-year old female for bilateral diagnostic mammogram. Tyrer-Cuzick lifetime risk of 10.9%. Current reported family history of breast cancer: mother. The patient reports diffuse pain (3 months) in the superior left breast. PRIOR EXAMS 01/12/2022, 11/30/2020, 11/02/2018, 10/31/2016, 10/12/2014. MAMMOGRAPHY TECHNIQUE: 2D and 3D (tomosynthesis) digital mammographic views obtained, with additional images as needed for full coverage. Current study was also evaluated with a Computer Aided Detection (CAD) system. DENSITY C. The breasts are heterogeneously dense, which may obscure small masses. MAMMOGRAPHY FINDINGS Right: No suspicious mass, asymmetry, microcalcification, or other abnormality seen. Left: [place]: There is no suspicious mammographic finding to account for concern by the patient of pain/tenderness. No suspicious mass, asymmetry, microcalcification, or other abnormality seen. IMPRESSION: * No evidence of malignancy. RECOMMENDATIONS Left * Diffuse, non-focal symptoms, such as pain or fullness are typically benign. Clinical follow-up is recommended, and further management of these symptoms should be based on the results of clinical evaluation. If diffuse symptoms persist or become more focal in nature, further clinical evaluation should be considered. Bilateral * Annual screening mammography. COMMENTS: Findings and recommendations were conveyed to the patient during today's evaluation. OVERALL ASSESSMENT CATEGORY BI-RADS-1: Negative. The [employer] recommends annual screening mammography beginning at age 40 for women with average risk of breast cancer. ELECTRONICALLY SIGNED: Lisa Enciso M.D. on 09/16/2024 at 10:45:14 AM PT Interpreting Station ID: [id number]
== END ==
LOC: MAMMO 09:30
PROVIDERS: PCP Registered Nurse; Referring Provider Registered Nurse; Visit Provider Registered Nurse
DX: N64.4 Mastodynia (principal); R92.333 Mammographic heterogeneous density, bilateral breasts; Z80.3 Family history of malignant neoplasm of breast
CPT/HCPCS: 77066; G0279